=== PATIENT | male | born 1945 | race Hispanic/Latino ===

== ENCOUNTER 2018-01-04 14:38 | Outpatient (CLI) | payer MEDICARE, MEDICAID ==
--- NOTE | 2018-01-04 15:54 | RAD ---
TWO VIEWS OF THE CHEST: 01/04/18 COMPARISON: 05/06/13 HISTORY: Unspecified abdominal pain. FINDINGS: The heart and mediastinal contours are stable. No pneumothorax, pleural fluid, focal consolidation, o r alveolar edema. Clips in right upper quadrant suggests prior cholecystectomy. IMPRESSION: No acute findings. POS: [facility]
--- NOTE | 2018-01-04 16:37 | ULT ---
ULTRASOUND ABDOMEN: 01/04/18 HISTORY: Epigastric pain. COMPARISON: None. FINDINGS: The visualized portion of the aorta is unremarkable. The pancreas is not well seen. Mild increased hepatic echotexture. Portal vein is patent. Prior cholecystectomy. Liver measures 14.6 cm. Common bile duct is normal. The right kidney measures 9.8 x 4.5 x 4.9 cm without mass or hydronephrosis. No calcifications. The left kidney measures 11.2 x 5.8 x 5.9 cm with a 1.2 cm interpolar cyst. Spleen is unremarkable. IMPRESSION: 1. Prior cholecystectomy. 2. No findings to explain the patient's pain. POS: [facility]
== END 2018-01-04 14:39 | disposition home or self-care (01) ==
LOC: ULT 14:38
PROVIDERS: ATTEND Family Medicine
DX: R10.9 Unspecified abdominal pain (principal); Z90.49 Acquired absence of other specified parts of digestive tract
CPT/HCPCS: 71046; 76700

== ENCOUNTER 2018-02-02 07:28 | Outpatient (CLI) | payer MEDICARE, MEDICAID ==
[2018-02-02] MEDS ORDERED: ISOVUE-370 76%-LOCM 1 ML ONE (15:14)
== END 2018-02-02 07:29 | disposition home or self-care (01) ==
LOC: BICCT 07:28
PROVIDERS: ATTEND Internal Medicine
DX: K63.89 Other specified diseases of intestine (principal)
CPT/HCPCS: 74177

== ENCOUNTER 2018-02-09 11:15 | Inpatient (IN) | payer MEDICARE, MEDICAID ==
[2018-02-20] MEDS ORDERED: Midazolam HCl 2 mg/2 ml Vial ONE (07:31)
[2018-02-20] MEDS ORDERED: Fentanyl 100 MCG/2 ML VIAL ONE ×2 (07:31→08:28)
[2018-02-20] MEDS ORDERED: Dexamethasone 4 mg/ml Vial ONE (07:34)
[2018-02-20] MEDS ORDERED: cefOXitin 2 GM in Sodium Chloride 0.9% 100 ML IVPB SCH (07:45)
[2018-02-20] MEDS ORDERED: Ketorolac Tromethamine 30 MG/ML VIAL ONE (07:55)
[2018-02-20] MEDS ORDERED: Lidocaine 1% w/Epinephrine 1:200K 30 ML VIAL ONE (08:21)
[2018-02-20] MEDS ORDERED: Ondansetron HCl/PF 4 MG/2 ML Vial ONE ×2 (08:28→14:23)
[2018-02-20] MEDS ORDERED: cefOXitin 2 GM VIAL ONE (10:35)
[2018-02-20] MEDS ORDERED: Meperidine HCl/PF 25 MG/ML VIAL SLOW IVP PRN (11:00)
[2018-02-20] MEDS ORDERED: Ondansetron HCl/PF 4 MG/2 ML Vial IVP PRN ×2 (11:00→15:01)
[2018-02-20] MEDS ORDERED: Promethazine HCl 25 MG/ML VIAL SLOW IVP PRN (11:00)
[2018-02-20] MEDS ORDERED: Bupivacaine HCl 0.5%/Epinephrine 1:200,000/PF 30 ml Vial ONE (13:47)
[2018-02-20] MEDS ORDERED: PHENYLEPHRINE-NS 100 MCG/ML 10 ML SYRINGE ONE (14:23)
[2018-02-20] MEDS ORDERED: ePHEDrine/0.9% NaCl/PF SYRINGE 50 mg/10 ml ONE (14:23)
[2018-02-20] MEDS ORDERED: Lidocaine 1% PF 5 ML VIAL ONE (14:23)
[2018-02-20] MEDS ORDERED: Glycopyrrolate 0.2 MG/ML 5 ML SYRINGE ONE (14:23)
[2018-02-20] MEDS ORDERED: PROPOFOL 200 MG/20 ML VIAL ONE (14:23)
[2018-02-20] MEDS ORDERED: hydrALAZINE 20 MG/ML VIAL SLOW IVP PRN (15:01)
[2018-02-20] MEDS ORDERED: Promethazine HCl 25 MG/ML VIAL IM PRN (15:01)
[2018-02-20] MEDS ORDERED: Morphine 4 MG/ML VIAL SLOW IVP PRN ×2 (15:01)
[2018-02-20 15:12] VITALS: BMI 29.4
[2018-02-20] MEDS: D5 1/2 NS w/20 mEq KCL 1,000 ML IV SCH ×2 (15:28→23:40)
[2018-02-20] MEDS: Ketorolac Tromethamine 30 MG/ML VIAL IVP SCH ×2 (15:30→20:55)
[2018-02-20] MEDS: Acetaminophen 1,000 MG in Premix Bag 1 BAG IVPB SCH ×2 (15:30→20:54)
[2018-02-20] MEDS: Famotidine 20 MG TAB PO SCH (20:52)
[2018-02-20] MEDS: Tamsulosin HCl 0.4 MG CAP PO SCH (20:52)
[2018-02-20] MEDS: Enoxaparin Sodium 40 MG/0.4 ML SYRINGE SC SCH (20:53)
[2018-02-20] MEDS: ALPRAZolam 0.5 MG TAB PO SCH (20:53)
[2018-02-20] MEDS: Famotidine/PF 20 mg/2ml Vial SLOW IVP SCH (20:54)
[2018-02-21] MEDS: Acetaminophen 1,000 MG in Premix Bag 1 BAG IVPB SCH ×2 (04:42→10:31)
[2018-02-21] MEDS: Ketorolac Tromethamine 30 MG/ML VIAL IVP SCH ×4 (04:42→20:49)
[2018-02-21 05:54] LABS: #Lymphocytes 1.5 thou/uL (1.20-3.40); #Neutrophils 13.3 thou/uL (1.40-6.50); %Eosinophils 0.1 % (0.0-10.0); %Lymphocytes 9.2 % (21.0-51.0); %Monocytes 6.2 % (0.0-10.0); %Neutrophils 84.5 % (42.0-75.0); Hemoglobin 14.5 g/dL (14.0-18.0); Mean Corpuscular HGB CONC 32.8 g/dL (32.0-36.0); Mean Corpuscular Hemoglobin 29.1 pg (27.0-31.0); Mean Platelet Volume 8.4 fL (7.4-10.4); Platelet Count 207 thou/uL (130-400); RBC Distribution Width 12.2 % (11.5-14.5); Red Blood Cell (RBC) Count 4.98 mill/uL (4.70-6.10); White Blood Cell (WBC) Count 15.8 thou/uL (4.8-10.8)
[2018-02-21 06:09] LABS: Anion Gap 12 mmol/L (10-20); BUN (Urea Nitrogen) 10 mg/dL (8.4-25.7); Calc. Creatinine Clearance 86 mL/min (70-130); Calcium 8.6 mg/dL (7.8-10.44); Carbon Dioxide 23 mmol/L (23-31); Chloride 104 mmol/L (98-107); Estimated GFR-MDRD 85; Glucose 138 mg/dL (83-110); Potassium 4.2 mmol/L (3.5-5.1); Sodium 135 mmol/L (136-145)
[2018-02-21] MEDS: Famotidine 20 MG TAB PO SCH ×2 (08:33→20:49)
[2018-02-21] MEDS: D5 1/2 NS w/20 mEq KCL 1,000 ML IV SCH ×3 (08:33→20:47)
[2018-02-21] MEDS: ALPRAZolam 0.5 MG TAB PO SCH ×2 (08:33→20:50)
[2018-02-21] MEDS: Famotidine/PF 20 mg/2ml Vial SLOW IVP SCH ×2 (08:37→20:57)
[2018-02-21] MEDS ORDERED: HYDROcodone/Acetaminophen 7.5/325 mg Tablet PO PRN ×2 (09:20)
--- NOTE | 2018-02-21 14:48 | PRG ---
DATE OF SERVICE: 02/21/2018 SUBJECTIVE: Mr. Hilario is postoperative day number 1 from a laparoscopic sigmoid colectomy. He has no complaints today. He notes essentially no discomfort. He is tolerating his clear liquids uneven tfully. His Good catheter has been removed and he is urinating. He is ambulating as requested. OBJECTIVE: VITAL SIGNS: He is afebrile, pulse 61, blood pressure 103/60. LUNGS: Clear to auscultation. ABDOMEN: Soft. Incision is healing nicely. He has audible bowel sounds. LABORATORY STUDIES: Reveal that his white blood cell count is 15.8, hemoglobin is 14.5. Chemistry p diana reveals essentially normal electrolytes. ASSESSMENT AND PLAN: In summary, he is doing very well one day out from his laparoscopic colon resec tion. Pathology is of course still pending. We will continue the clear liquids today and we will st art full liquids in the morning. If he has evidence of appropriate bowel function, then he is probab ly going to be appropriate for discharge home tomorrow.
[2018-02-21] MEDS: Tamsulosin HCl 0.4 MG CAP PO SCH (20:49)
[2018-02-21] MEDS: Enoxaparin Sodium 40 MG/0.4 ML SYRINGE SC SCH (20:50)
[2018-02-21 23:56] VITALS: TEMP 97.8
[2018-02-22] MEDS: Ketorolac Tromethamine 30 MG/ML VIAL IVP SCH ×2 (03:27→13:25)
[2018-02-22] MEDS: D5 1/2 NS w/20 mEq KCL 1,000 ML IV SCH (03:28)
[2018-02-22] MEDS: ALPRAZolam 0.5 MG TAB PO SCH (08:33)
[2018-02-22] MEDS: Famotidine 20 MG TAB PO SCH ×2 (08:33→08:34)
[2018-02-22 12:11] VITALS: BP 122/67
--- NOTE | 2018-02-23 09:05 | OP ---
DATE OF PROCEDURE: 02/20/2018 PREOPERATIVE DIAGNOSIS: Sigmoid colon cancer. POSTOPERATIVE DIAGNOSIS: Sigmoid colon cancer. OPERATION PERFORMED: Laparoscopic sigmoid colectomy. SURGEON: Dr. Kana Taylor. ANESTHESIA: General endotracheal. INDICATIONS: Patient is a 72-year-old male. He recently underwent colonoscopy revealing a colon cancer about 25 cm from the anal verge. This was tattooed by his paper core machine operator. He prese nts at this time for laparoscopic sigmoid colectomy. He has undergone a preoperative mechanical and antibiotic bowel prep as an outpatient. DESCRIPTION OF OPERATION: Informed consent was obtained. Patient was taken to the operating room ere general endotracheal anesthesia was obtained with the patient in supine position. Tap blocks wer e placed preoperatively by Anesthesia. Good catheter was placed, abdomen was prepped with ChloraPre p and draped in sterile fashion. Patient was placed into dorsal lithotomy position using the Yellofi n stirrups. Local anesthetic was infiltrated with 0.25% Marcaine with epinephrine and a 5-mm incision was created supraumbilical. Veress needle was passed into this incision into the peritoneal cavity and pneumope ritoneum established using carbon dioxide up to a pressure of 15 mmHg. A 5-mm trocar port was passed this same incision. Laparoscopic camera was passed this port. Under direct vision, a 12-mm right l ower abdominal port was placed. The area of the malignancy was able to be identified by tattoos and accordingly, I selected an extraction site in the left lower quadrant. An oblique 7-cm incision was created and muscle splitting technique was used to gain access into the abdominal cavity. The Rufus wound retractor tool was placed followed by the GelPort. Left hand was passed into the abdominal cavity and the operation was continued. The area of the malignancy was easily palpable. I was able to elevate this up out of the pelvis. Se veral centimeters distal to the malignancy just below the level of the sacral promontory was selected the distal transection site. Began peritoneal dissection on the right lateral aspect of the mesentery at approximately the locatio n of the inferior mesenteric vessels. I dissected through the mesentery to the left side was able to clearly identify the left ureter. This was swept inferiorly and dissection was carried to the loose areolar tissue into the extra mesorectal plane. When I had dissected down to the desired level in t he upper rectum, I transected through the mesenteric tissue to skeletonize the upper rectum. This wa s then divided with a single fire of the blue-load [place] stapler. The mesentery was then dissected proximally to the level of the KRIS. I then turned my attention to the left colon. I completely mobilized the sigmoid colon and left colo n from lateral abdominal wall by incising the white line of Toldt up to the splenic flexure. The spl enic flexure was mobilized completely in a lateral to medial fashion. Once there was complete laxity of the splenic flexure and left colon, I returned my attention to the pelvis. I identified a segmen t of the descending colon that would easily reach down to the rectal stump. This was marked with the LigaSure. The bowel was then brought out through the Rufus wound retractor and the operation was c ontinued in an extracorporeal fashion. I turned my attention first to the inferior mesenteric artery, which was visible through the port. T his was divided between clamps and 2-0 silk ties using a suture ligature. I then used the LigaSure t o dissect through the mesentery to the selected site of proximal colon division. At this point, sterile towels were placed around the wound retractor and segregated instrumentation w as used. A colotomy was created and the colon was sized and found to easily tolerate a 31-mm EEA sta pler. The anvil was passed through the colotomy several centimeters proximally brought out antimesen teric. The colotomy was then excluded in continuity with the segment to be resected with a final fir ing of the [place] stapler. The colon was then passed off the field as were the segregated instrumen ts. There had been no bowel contents spillage. Gloves were changed. The post of the anvil was jeffrey nsed with Betadine and a pursestring suture was placed around the base of the anvil and the colon was dropped down into the abdominal cavity. From below, EEA sizers were passed up to the rectal staple line under direct vision and palpation. T he stapler was then passed up to the rectal staple line and the spike was advanced just anterior to t he staple line. This was secured to the anvil in the descending colon and these 2 segments of bowel were anastomosed by firing the stapler. Staple was removed and the donuts were inspected and found t o be intact. The distal donut was submitted as an additional specimen. The anastomosis then inspect ed under water with insufflation to ensure it was airtight. All irrigant was aspirated. The entire operative site was inspected for hemostasis, which was intact . The fascia at the 12-mm port site was closed with 0 Vicryl suture using a GraNee needle. All port s and instruments removed under direct vision. The Rufus wound retractor was removed. All laparosc opic instrumentation was removed from the table. The abdomen was cleansed. The closing tray was then utilized. Gowns and gloves were changed and all new instrumentation was ut ilized. Sterile towels were placed around the operative site. The posterior fascia at the left lowe r quadrant incision was closed with #1 PDS. The wound was then irrigated. The anterior fascia was a lso closed with #1 PDS. I then utilized the laparoscopic ribbon sweatband operator to irrigate the wound as well as the other laparoscopic incisions with 2 liters of irrigant. After the area had been dried, the left lower quadrant wound was closed in layers with 3-0 and 4-0 Monocryl and the other two incisions were also closed with 4-0 Monocryl. Dermabond was placed externally. There were no complications. Blood loss was negligible. Patient tolerated the procedure well and was taken to recovery room in stable condition.
== END 2018-02-22 13:15 | disposition home or self-care (01) | DRG 331 ==
LOC: SURG A 02-20 06:55 → SURG B 02-20 14:42
PROVIDERS: ADMIT Specialist; ATTEND Specialist
PROC: 0DBN4ZZ Excision of Sigmoid Colon, Percutaneous Endoscopic Approach (ICD-10-PCS; principal; 2018-02-20)
DX: C18.7 Malignant neoplasm of sigmoid colon (principal)
CPT/HCPCS: 36415; 36416; 80048; 85025; 88305; 88309; 88331; J0131; J0670; J0694; J1100; J1650; J1885; J2001; J2250; J2270; J2405; J2704; J3010; J7050

== ENCOUNTER 2018-02-09 11:49 | Outpatient (CLI) | payer MEDICARE, MEDICAID ==
[2018-02-09 13:07] LABS: #Basophils 0.1 thou/uL (0.0-0.2); #Eosinphils 0.2 thou/uL (0.0-0.7); #Lymphocytes 2.4 thou/uL (1.20-3.40); #Monocytes 0.6 thou/uL (0.11-0.59); #Neutrophils 3.3 thou/uL (1.40-6.50); %Basophils 1.2 % (0.0-1.0); %Eosinophils 2.6 % (0.0-10.0); %Lymphocytes 37.1 % (21.0-51.0); %Monocytes 8.8 % (0.0-10.0); %Neutrophils 50.2 % (42.0-75.0); Hemoglobin 15.2 g/dL (14.0-18.0); Mean Corpuscular HGB CONC 33.4 g/dL (32.0-36.0); Mean Corpuscular Hemoglobin 30.3 pg (27.0-31.0); Mean Corpuscular Volume 90.6 fl (80.0-94.0); Mean Platelet Volume 8.7 fL (7.4-10.4); Platelet Count 207 thou/uL (130-400); RBC Distribution Width 12.2 % (11.5-14.5); Red Blood Cell (RBC) Count 5.01 mill/uL (4.70-6.10); White Blood Cell (WBC) Count 6.6 thou/uL (4.8-10.8)
[2018-02-09 13:18] LABS: Hemoglobin A1c 5.7 % (4.0-6.0)
[2018-02-09 13:25] LABS: Anion Gap 11 mmol/L (10-20); BUN (Urea Nitrogen) 12 mg/dL (8.4-25.7); Calc. Creatinine Clearance 0 mL/min (70-130); Calcium 9.3 mg/dL (7.8-10.44); Carbon Dioxide 28 mmol/L (23-31); Chloride 106 mmol/L (98-107); Estimated GFR-MDRD 78; Glucose 88 mg/dL (83-110); Potassium 4.5 mmol/L (3.5-5.1); Sodium 140 mmol/L (136-145)
--- NOTE | 2018-02-09 16:48 | EKG ---
Test Reason : Blood Pressure : / mmHG Vent. Rate : 053 BPM Atrial Rate : 053 BPM P-R Int : 128 ms QRS Dur : 104 ms QT Int : 424 ms P-R-T Axes : 050 027 038 degrees QTc Int : 397 ms Sinus bradycardia Otherwise normal ECG Confirmed by DR. Nam GUTHRIE ([id number]) on 02/09/2018 4:48:27 PM Referred By: STEMI Confirmed By:DR. Nam GUTHRIE
== END 2018-02-09 11:50 | disposition home or self-care (01) ==
LOC: LABBT 11:49
PROVIDERS: ATTEND Specialist
DX: Z01.818 Encounter for other preprocedural examination (principal); C18.7 Malignant neoplasm of sigmoid colon; R00.1 Bradycardia, unspecified; Z88.0 Allergy status to penicillin
CPT/HCPCS: 80048; 83036; 85025; 93005; 93010

== ENCOUNTER 2018-03-14 20:58 | Emergency (ER) | payer MEDICARE, MEDICAID ==
[2018-03-14 21:41] LABS: Bilirubin Negative (Negative); Blood, Urine Negative (Negative); Clarity CLEAR (Clear); Glucose, Urine (Dipstick) Negative (Negative); Leukocyte Negative (Negative); Nitrite Negative (Negative); Protein, Urine (Dipstick) Negative (Neg-Trace); Specific Gravity, Urine 1.008 (1.002-1.036); pH, Urine 6.5 (5.0-9.0)
[2018-03-14 22:33] LABS: Anion Gap 9 mmol/L (10-20); BUN (Urea Nitrogen) 8 mg/dL (8.4-25.7); Calc. Creatinine Clearance 0 mL/min (70-130); Calcium 8.6 mg/dL (7.8-10.44); Carbon Dioxide 29 mmol/L (23-31); Chloride 101 mmol/L (98-107); Estimated GFR-MDRD Greater than 90; Glucose 110 mg/dL (83-110); Potassium 3.8 mmol/L (3.5-5.1); Sodium 135 mmol/L (136-145)
== END 2018-03-14 22:57 | disposition home or self-care (01) ==
LOC: ERS 20:58
DX: R33.9 Retention of urine, unspecified (principal); F41.9 Anxiety disorder, unspecified; N40.0 Benign prostatic hyperplasia without lower urinary tract symptoms; J45.909 Unspecified asthma, uncomplicated; Z79.899 Other long term (current) drug therapy; Z87.891 Personal history of nicotine dependence
CPT/HCPCS: 36415; 51702; 80048; 81003; 87086

== ENCOUNTER 2018-03-16 04:49 | Emergency (ER) | payer MEDICARE, MEDICAID ==
[2018-03-16 05:20] LABS: Bilirubin Negative (Negative); Blood, Urine Large (Negative); Clarity TURBID (Clear); Glucose, Urine (Dipstick) Negative (Negative); Leukocyte Small (Negative); Nitrite Negative (Negative); Protein, Urine (Dipstick) 30 mg/dL (Neg-Trace); Specific Gravity, Urine 1.017 (1.002-1.036)
[2018-03-16 05:21] LABS: Bacteria/HPF None Seen HPF (None Seen); Pathc Cast-AUWi Flag 1.45 (0-2.49); RBC/HPF GREATER THAN 50-TNTC HPF (0-3); Squamous Epithelial 0-3 HPF (0-3)
[2018-03-16 05:28] LABS: Hyaline Casts/LPF 0-3 HYALINE CAST LPF (0-3 Hyaline)
[2018-03-16 05:29] LABS: Crystals/HPF 3+ AMORPH PHOS HPF (Negative)
== END 2018-03-16 05:46 | disposition home or self-care (01) ==
LOC: ERS 04:49
DX: T83.84XA Pain due to genitourinary prosthetic devices, implants and grafts, initial encounter (principal); J45.909 Unspecified asthma, uncomplicated; N40.0 Benign prostatic hyperplasia without lower urinary tract symptoms; F41.9 Anxiety disorder, unspecified; Z79.899 Other long term (current) drug therapy; Z87.891 Personal history of nicotine dependence
CPT/HCPCS: 81003; 81015; 87086; 99283

== ENCOUNTER 2018-03-19 11:48 | Emergency (ER) | payer MEDICARE, MEDICAID ==
[2018-03-19 12:50] LABS: #Basophils 0.1 thou/uL (0.0-0.2); #Eosinphils 0.1 thou/uL (0.0-0.7); #Lymphocytes 2.1 thou/uL (1.20-3.40); #Monocytes 1.1 thou/uL (0.11-0.59); #Neutrophils 10.3 thou/uL (1.40-6.50); %Basophils 0.4 % (0.0-1.0); %Eosinophils 0.9 % (0.0-10.0); %Lymphocytes 15.2 % (21.0-51.0); %Monocytes 7.8 % (0.0-10.0); %Neutrophils 75.7 % (42.0-75.0); Hemoglobin 14.9 g/dL (14.0-18.0); Mean Corpuscular HGB CONC 33.6 g/dL (32.0-36.0); Mean Corpuscular Hemoglobin 30.1 pg (27.0-31.0); Mean Corpuscular Volume 89.6 fl (80.0-94.0); Mean Platelet Volume 7.9 fL (7.4-10.4); Platelet Count 306 thou/uL (130-400); Red Blood Cell (RBC) Count 4.96 mill/uL (4.70-6.10); White Blood Cell (WBC) Count 13.6 thou/uL (4.8-10.8)
[2018-03-19 13:13] LABS: ALT (SGPT) 13 U/L (8-55); AST (SGOT) 16 U/L (5-34); Alkaline Phosphatase 143 U/L (40-150); Anion Gap 12 mmol/L (10-20); BUN (Urea Nitrogen) 13 mg/dL (8.4-25.7); Bilirubin, Total 1.3 mg/dL (0.2-1.2); Calc. Creatinine Clearance 0 mL/min (70-130); Calcium 9.4 mg/dL (7.8-10.44); Carbon Dioxide 26 mmol/L (23-31); Chloride 100 mmol/L (98-107); Estimated GFR-MDRD 69; Globulin 4.4 g/dL (2.4-3.5); Glucose 102 mg/dL (83-110); Potassium 4.2 mmol/L (3.5-5.1); Protein, Total 8.4 g/dL (5.8-8.1); Sodium 134 mmol/L (136-145)
== END 2018-03-19 13:15 | disposition left against medical advice (07) ==
LOC: ERS 11:48
DX: Z53.21 Procedure and treatment not carried out due to patient leaving prior to being seen by health care provider (principal)
CPT/HCPCS: 36415; 80053; 85025

== ENCOUNTER 2018-03-20 10:55 | Inpatient (IN) | payer MEDICARE, MEDICAID ==
[2018-03-20 11:30] LABS: Hemoglobin 13.7 g/dL (14.0-18.0); Mean Corpuscular HGB CONC 33.4 g/dL (32.0-36.0); Mean Corpuscular Volume 89.9 fl (80.0-94.0); Mean Platelet Volume 7.9 fL (7.4-10.4); Platelet Count 262 thou/uL (130-400); RBC Distribution Width 11.8 % (11.5-14.5); Red Blood Cell (RBC) Count 4.57 mill/uL (4.70-6.10); White Blood Cell (WBC) Count 13.6 thou/uL (4.8-10.8)
[2018-03-20] MEDS ORDERED: cefTRIAXone\\ROCEPHIN 1 GM VIAL ONE (11:32)
--- NOTE | 2018-03-20 11:51 | CT ---
BRAIN CT WITHOUT IV CONTRAST: History: 72-year-old male with history of fever, urinary tract catheter issues. Comparison: 07-29-06 FINDINGS: Age related changes. No focal mass or midline shift. No intra or extraaxial hemorrhage. Sinuses and m astoids are clear of acute process. IMPRESSION: No mass or bleed or other acute intracranial process. Stable from prior study. POS: [facility]
[2018-03-20 11:53] LABS: Band 18 % (5-11); Lymphocytes 5 % (21-51); MDiff Complete? YES; Monocytes 3 % (0-10); Neutrophil 73 % (42-75); PLT Morphology Comment Appears Adequate; Reactive Lymphocytes 1 % (0-10); Vacuoles SLIGHT
[2018-03-20 11:59] LABS: ALT (SGPT) 12 U/L (8-55); AST (SGOT) 16 U/L (5-34); Albumin 3.6 g/dL (3.4-4.8); Alkaline Phosphatase 137 U/L (40-150); Anion Gap 15 mmol/L (10-20); BUN (Urea Nitrogen) 18 mg/dL (8.4-25.7); Bilirubin, Total 2.7 mg/dL (0.2-1.2); Calc. Creatinine Clearance 0 mL/min (70-130); Calcium 9.1 mg/dL (7.8-10.44); Carbon Dioxide 23 mmol/L (23-31); Chloride 99 mmol/L (98-107); Estimated GFR-MDRD 51; Glucose 106 mg/dL (83-110); Potassium 4.2 mmol/L (3.5-5.1); Protein, Total 7.6 g/dL (5.8-8.1); Sodium 133 mmol/L (136-145)
[2018-03-20 12:37] LABS: Bilirubin Small (Negative); Blood, Urine Large (Negative); Clarity TURBID (Clear); Glucose, Urine (Dipstick) Negative (Negative); Leukocyte Large (Negative); Nitrite Negative (Negative); Protein, Urine (Dipstick) 100 mg/dL (Neg-Trace); Specific Gravity, Urine 1.023 (1.002-1.036); pH, Urine 5.5 (5.0-9.0)
--- NOTE | 2018-03-20 12:41 | RAD ---
CHEST ONE VIEW: HISTORY: Fever. COMPARISON: Chest radiograph from 11/25/2016. FINDINGS: The nodular density seen on the prior examination is not well seen. Increased mediastinal fat. Ther e is some atelectasis in the lung bases. No pneumothorax. No focal air space consolidation. IMPRESSION: No acute intrathoracic abnormality. POS: [facility]
[2018-03-20 12:42] LABS: Hyaline Casts/LPF 4-6 HYALINE CAST LPF (0-3 Hyaline); Pathc Cast-AUWi Flag 1.01 (0-2.49); Squamous Epithelial 0-3 HPF (0-3)
[2018-03-20 12:45] LABS: Yeast-AUWi Flag 71.3 (0-25.0)
[2018-03-20 12:53] LABS: Bacteria/HPF 3+ HPF (None Seen)
[2018-03-20] MEDS ORDERED: Sodium Chloride 0.9% 1,000 ML IV SCH (14:52)
[2018-03-20] MEDS ORDERED: Ondansetron ODT 4 MG TAB PO PRN (14:58)
[2018-03-20 15:26] VITALS: BMI 25.8
[2018-03-20 15:34] LABS: Lactic Acid 1.6 mmol/L (0.5-2.2)
[2018-03-20] MEDS ORDERED: Vancomycin HCl 500 MG in Sodium Chloride 0.9% 100 ML IVPB SCH (16:00)
[2018-03-20] MEDS: Sodium Chloride 0.9% 1,000 ML IV SCH (17:03)
[2018-03-20] MEDS: Acetaminophen 325 MG TAB PO PRN (20:28)
[2018-03-20] MEDS ORDERED: Vancomycin HCl 1 GM in Premix Bag 1 BAG IVPB SCH (21:00)
--- NOTE | 2018-03-20 21:26 | HP ---
CHIEF COMPLAINT: Fever. HISTORY OF PRESENT ILLNESS: This patient is a 72-year-old male who underwent a sigmoid colectomy on 02/22/2018 for a neoplastic mass, which was ultimately a lymph node negative. Patient subsequently f elt final pathology revealed moderately differentiated colonic adenocarcinoma. Patient does not requ jeovanny any further treatment. He reports that he has been doing extremely well with respect to the post op abdomen. However, the patient subsequently developed some urinary retention after his discharge. He has some history of BPH contributing as well. Patient had to come to the emergency department, h ave a Good catheter placed. At that time, he had no evidence of urinary tract infection. The patie nt then had a second visit with the emergency department because he was having some pain in the penis with the catheter. The patient was treated and released from the emergency department. He then cam e back to the ER yesterday, but left without being seen and return today. Today apparently the marcellus nt had gone to his primary care physician's office and had the Good catheter removed. Subsequent to that, he started experiencing substantial fevers with temperature over 104. The patient presented b ack to the emergency department. There, he was noted to have a temperature of 100.9 with pulse of 11 5 and BP of 82/47, room air sat was 92%. Patient appeared to have some evidence of urinary tract inf ection and was felt to have sepsis. On my interview with patient, he states he actually feels quite well. He states he has very little discomfort remaining in the pelvis and penis area, but that is ge tting better. He has voided 3 times since the Good catheter has been removed in the ER since he has been up on the floor. He denies any problems at present and states he understands the situation wel l. The ER physician reported the patient's family members indicated the patient was slurring his wor ds; however, that was not appreciated by that physician. The family members are not present now. PAST MEDICAL HISTORY: Notable for the adenocarcinoma of the colon removed last month. He also has a history of BPH, asthma, and apparently some anxiety. PAST SURGICAL HISTORY: Includes cholecystectomy and the sigmoid colectomy. FAMILY HISTORY: Patient indicates no problems. SOCIAL HISTORY: Patient is a former smoker, quit some years ago. Denies drugs or alcohol. REVIEW OF SYSTEMS: A 10-point review of systems is negative other than those things mentioned in the history of present illness. ALLERGIES: Include PENICILLIN. CURRENT MEDICATIONS: Tramadol 50 mg 1-2 p.o. q.6 hours p.r.n., Flomax 0.4 mg at bedtime, Proventil H FA 2 puffs q.6 hours p.r.n., and Xanax 0.5 mg one p.o. b.i.d. PHYSICAL EXAMINATION: VITAL SIGNS: Currently, blood pressure is still 70s-80s. Most recent vital signs, BP was measured a t 100/58, pulse 88, respirations 18, O2 sat 97% on 2 liters. GENERAL APPEARANCE: Patient is fully awake and alert, pleasant, cooperative, very interactive, and a ppears quite energetic. He does not appear toxic at all. Does not appears that he feels bad in any way. HEENT: PERRL. No OP lesions. NECK: Supple and symmetric with no lymphadenopathy, JVD, or carotid bruits. CARDIOVASCULAR: Regular rate and rhythm without murmurs, gallops, or rubs. LUNGS: Clear to auscultation bilaterally. ABDOMEN: Flat, soft, nontender, nondistended. There is a healing surgical incisional scar primarily in the left lower abdomen. There are no cellulitic changes. EXTREMITIES: Warm and dry with no edema. NEUROLOGIC: Patient has no focal findings. PSYCHIATRIC: Patient has normal affect. SKIN: There are no rashes or lesions. LABORATORY DATA: White count 13.6, hemoglobin 13.7, he has 18% bands. Sodium 133, potassium 4.2, ch loride 99, CO2 is 23, BUN 18, creatinine 1.37, glucose 106, lactic acid 2.7, calcium 9.1. Total bili arora 2.7. LFTs normal. Albumin 3.6. Urinalysis is turbid and dark yellow, pH of 5.5, specific gra vity 1.023, protein 100, trace ketones, large blood, small bilirubin, negative nitrites, large leukoc yte esterase with 7-10 red cells and greater than 50 to too numerous to count white cells, 3+ bacteri a. Chest x-ray normal and CT of the brain performed to evaluate potential slurring of speech appears to be normal as well. ASSESSMENT AND PLAN: 1. Sepsis secondary to urinary tract infection. Patient is receiving aggressive hydration as well a s broad spectrum antibiotics. Blood and urine cultures are pending. He received vancomycin and Roce phin. I will continue those for now. Follow up on the cultures. Primary source is likely the Good catheter. May have dislodged even something, as it was removed today. We will recheck his lactic a bhavani and continue to push fluids as his blood pressure still remained somewhat low. 2. Urinary retention. Patient had postoperative urinary retention. Has a history of some BPH. He has voided 3 times since his Good catheter has been removed. We will order urine osmolality has not a bit concerned he may have actually not had a normally functioning Good catheter and had an obstru ctive uropathy and we are going to may have postobstructive diuresis given that he has voided so much already. He certainly received a fair amount of fluids as well. His blood pressure remains a bit l ow. 3. Postop sigmoid colectomy secondary to adenoma. Patient appears to be doing very well postoperati vely. 4. History of anxiety. We will continue with patient's usual home medications including the Xanax. DISPOSITION: Patient is a FULL CODE and his daughter is his surrogate decision maker and the emergen cy contact.
--- NOTE | 2018-03-20 22:57 | CON ---
DATE OF SERVICE: 03/20/2018 SERVICE: Pulmonary Medicine. REASON FOR CONSULTATION: IMCU patient. HISTORY OF PRESENT ILLNESS: Patient is a 72-year-old male with past medical history significant for adenocarcinoma of the colon. He underwent a resection. Nodes were negative. This was roughly 2 weeks ago. After that, his postop course was complicated by urinary retention. He had a Good catheter or chronically indwelling Good catheter in place for the last couple of weeks. Yesterday, he underwent a voiding trial and apparently did okay with that. As such, the Good catheter was discontinued. For the last 2-3 days, he has had a lack of energy. He presented to the emergency department and was found to be hypotensive. As such, he was given a couple liters of fluid, initiated on broad-spectrum antibiotics. His white blood cell count and band count were elevated. He currently denies any cough, fevers, chills, nausea, vomiting, shortness of breath, diarrhea, or constipation. He indicates that his bowel movements have been slow, but he had passing gas. PAST MEDICAL HISTORY: 1. Anxiety disorder. 2. BPH. 3. Asthma. 4. Colon cancer, status post recent partial colectomy. 5. Adenocarcinoma of the colon, T2 N0 M0. PAST SURGICAL HISTORY: 1. Cholecystectomy. 2. Partial colectomy. SOCIAL HISTORY: He has a remote history of smoking, but quit over 10 years ago. He denies any alcohol or illicit drug use. FAMILY HISTORY: Noncontributory. ALLERGIES: PENICILLIN based on chart review. MEDICATIONS: List of his inpatient medications were reviewed. No specific updates were made at this time. REVIEW OF SYSTEMS: General, head, ears, eyes, nose, throat, cardiovascular, respiratory, GI, , musculoskeletal, neurologic, and skin is negative except as mentioned in the HPI. PHYSICAL EXAMINATION: VITAL SIGNS: Afebrile, pulse 78, blood pressure 80/51, respirations 18, saturation 100% on room air. GENERAL: Patient is awake, alert, no apparent distress. LUNGS: Decent air entry. There is no dependent crackles, wheezing, or rhonchi present. There is no prolonged expiratory phase. HEART: Normal rate, regular. ABDOMEN: Soft, nontender, nondistended. Bowel sounds are positive. His incision site in the left lower quadrant is clean, dry, and intact. The other ports are also clean. There is no rebound or guarding present. Bowel sounds are hypoactive. : No Good in place. NEUROLOGIC: Grossly nonfocal. LABORATORY DATA: WBC 13.6, hemoglobin 13.7, platelets 262,000. Basic metabolic profile was essentially unremarkable other than a creatinine that is above baseline at 1.37. Liver function studies are essentially unremarkable. His bilirubin is minimally elevated at 2.7. That being said, alkaline phosphatase is unremarkable. Urinalysis is positive for white blood cells, leukocyte esterase. Nitrites are unremarkable, 3+ bacteria is evident. Recent urine culture from the and were both unremarkable. IMAGING: CT of the brain demonstrates no acute intracranial abnormality. Chest x-ray demonstrates no acute cardiopulmonary abnormality. ASSESSMENT: 1. Severe sepsis. 2. Acute kidney injury, mild. 3. Urinary tract infection, suspected. 4. Recent obstructive uropathy. 5. Adenocarcinoma of the colon, status post recent partial colectomy with lymph node exploration. PLAN: We will continue antibiotics. We also add a cortisol level to tomorrow morning's laboratories. We will continue bolusing intermittent doses of fluids as needed in order to maintain pressures. Previously, he responded to 1 liter bolus. Since his p.o. intake is poor, gentle IV hydration will be provided. He will remain in the IMCU until his blood pressures firm up a touch. If they do not and he gets 4 liters of fluid, we will consider placing a central line and initiating pressors. For the time being, the patient just requires close observation, however. 70 minutes have been devoted to this patient in various activities. I personally reviewed all imaging studies and laboratory data noted within this document. For fifty percent of this time, I was interacting with the patient at the bedside or coordinating care with the care team. For the remainder of the time I was immediately available to the patient in the hospital unit. KELLEY
[2018-03-20] MEDS ORDERED: PROVENTIL INHALER 6.7 G (200 INHALATIONS) INH PRN (23:08)
[2018-03-21] MEDS: Sodium Chloride 0.9% 1,000 ML IV SCH (03:27)
[2018-03-21 04:10] LABS: Anion Gap 12 mmol/L (10-20); BUN (Urea Nitrogen) 15 mg/dL (8.4-25.7); Calc. Creatinine Clearance 92 mL/min (70-130); Calcium 8.3 mg/dL (7.8-10.44); Carbon Dioxide 21 mmol/L (23-31); Chloride 109 mmol/L (98-107); Estimated GFR-MDRD Greater than 90; Glucose 111 mg/dL (83-110); Potassium 3.9 mmol/L (3.5-5.1); Sodium 138 mmol/L (136-145)
[2018-03-21] MEDS: ALPRAZolam 0.5 MG TAB PO SCH ×2 (08:36→20:37)
[2018-03-21] MEDS: Enoxaparin Sodium 40 MG/0.4 ML SYRINGE SC SCH (08:36)
--- NOTE | 2018-03-21 09:22 | PDOC.PN ---
- Subjective Encounter Start Date: 03/21/18 Encounter Start Time: 09:20 DOING WELL, BUT REPORTS HE HAS SOME PAIN IN THE PELVIS THAT FEELS LIKE PRESSURE. HAS PRESSURE TYPE DISCOMFORT WITH VOIDING AND SITTING UP. VOIDING WELL OTHERWISE. - Objective Resuscitation Status: Resuscitation Status FULL:Full Resuscitation MAR Reviewed: Yes Vital Signs & Weight: Vital Signs (12 hours) Temp Pulse Resp BP Pulse Ox 03/21/18 07:19 99.0 F 78 18 115/66 99 03/21/18 03:28 98.1 F 66 18 108/58 L 100 03/21/18 00:00 97.8 F 62 18 93/53 L 98 Weight Weight 167 lb 14.4 oz I&O: 03/20/18 03/21/18 03/22/18 06:59 06:59 06:59 Intake Total 1200 Output Total 2150 Balance -950 Result Diagrams: 03/20/18 11:22 03/21/18 03:18 Phys Exam - Physical Examination Constitutional: NAD HEENT: PERRLA Neck: no JVD, supple Respiratory: no wheezing, no rales, no rhonchi, clear to auscultation bilateral Cardiovascular: RRR, no significant murmur Gastrointestinal: soft, non-tender, no distention, positive bowel sounds NO BLADDER DISTENTION PALPATED. TTP IN SUPRAPUBIC AREA. Musculoskeletal: no edema Neurological: non-focal Psychiatric: normal affect Skin: no rash Dx/Plan (1) Sepsis Code(s): A41.9 - SEPSIS, UNSPECIFIED ORGANISM Status: Acute Plan: PRESENTED WITH SEPSIS. IMPROVED NOW. APPARENT URINARY SOURCE. STABLE. TRANSFER TO FLOOR. (2) UTI (urinary tract infection) Status: Acute Plan: VANCOMYCIN AND ROCEPHIN. CULTURES DO NOT REVEAL A SPECIFIC PATHOGEN YET. (3) Pelvic pain in male Code(s): R10.2 - PELVIC AND PERINEAL PAIN Status: Acute Plan: HE IS S/P SIGMOID COLECTOMY FOR T1N0 ADENOCA. ALSO HAD SUBSEQUENT URINARY RETENTION AND REQUIRED A LAKE UNTIL YESTERDAY. WILL ASK UROLOGY TO EVALUATE HIM AGAIN. SUSPECT HIS DISCOMFORT IS RELATED TO THE LAKE THAT WAS DISCONTINUED YESTERDAY, BUT GIVEN THE SEVERITY OF HIS PRESENTATION, NEED TO BE CERTAIN THERE IS NO OTHER PATHOLOGY OF CONCERN. (4) Dysuria Code(s): R30.0 - DYSURIA Status: Acute - Plan * TRANSFER TO THE FLOOR. * AWAIT COMPLETION OF CULTURES.
--- NOTE | 2018-03-21 10:03 | PRG ---
DATE OF SERVICE: 03/21/2018 SERVICE: Pulmonary Medicine. INTERVAL HISTORY: The patient is doing fine from a cardiovascular and respiratory standpoint. He de nies any current fevers, chills, nausea or vomiting. Overnight, his blood pressures firmed up very n icely. He is tolerating p.o. Otherwise, he is requesting to go home today. I told him that is not going to happen because we were waiting some blood cultures and urine cultures to come back prelimina rily before we consider what p.o. antibiotic regimen we can put him on if that is feasible. PHYSICAL EXAMINATION: VITAL SIGNS: Afebrile with a T-max of 99.0. Pulse 78, blood pressure 115/66, respirations 18, satur ation 99% on room air. GENERAL: The patient is awake and alert, no apparent distress. LUNGS: Excellent air entry. There is no prolonged expiratory phase or wheezing present. HEART: Normal rate and regular. ABDOMEN: Soft, nontender, nondistended. Bowel sounds are positive. MUSCULOSKELETAL: No cyanosis or clubbing. There is no pitting in the bilateral lower extremities. NEUROLOGIC: Grossly nonfocal. LABORATORY DATA: Cortisol level falls within the normal limits. Lactate has down trended to 1.6. B asic metabolic profile is completely unremarkable with a creatinine that is now normal at 0.79. Whit e blood cells are positive in the urinalysis. Urine culture and blood cultures are negative to date, however. ASSESSMENT: 1. Severe sepsis. 2. Acute kidney injury, resolved. 3. Urinary tract infection, suspected. 4. Recent obstructive uropathy. 5. Adenocarcinoma of the colon, status post recent partial colectomy with lymph node exploration. DISCUSSION AND PLAN: We will continue our empiric antibiotics while we await culture results. IV fl uids will be interrupted as the patient is tolerating p.o. just fine. He is clearing his end organ d amage. As such, he is a candidate for transition to the medical unit while we follow the cultures. When he arrives on the floor, he will have no further requirements for inpatient Pulmonary or Critica l Care opinion and I will sign off.
[2018-03-21] MEDS: cefTRIAXone\\ROCEPHIN 1 GM in Sodium Chloride 0.9% 100 ML IVPB SCH (12:43)
[2018-03-21] MEDS: Acetaminophen 325 MG TAB PO PRN (12:43)
[2018-03-21] MEDS: Vancomycin HCl 1.5 GM in Sodium Chloride 0.9% 250 ML 300 ML IVPB SCH (12:43)
--- NOTE | 2018-03-21 13:57 | CON ---
DATE OF CONSULTATION: 03/21/2018 INPATIENT CONSULTATION REFERRING: Hospitalist. REASON FOR CONSULT: UTI. HISTORY OF PRESENT ILLNESS: Mr. Sulaiman Cox is a 72-year-old male , non-Kazakh speaking, who presented to the emergency room on 03/14/2018 with urinary retention of approximately 350 mL. Questionable 550 mL upon review of records. The patient previously underwent laparoscopic sigmoid colectomy by Dr. Taylor on 02/20/2018. He had an indwelling Good catheter and presented to my office as a new patient on 03/20/2018. We did provide him with a voiding trial and he was only able to tolerate approximately 150 mL into the bladder which began to urinate around the catheter and he voided with no significant postvoid residual of concern. He was given an elective followup with me regarding reassessment of his voiding parameters. I did inform the patient to increase his Flomax to b.i.d., due to significantly enlarged prostate and recent urinary retention, and was initiated on Avodart on a recent visit due to large prostate volume appreciated on his prior CT. The patient subsequently after the catheter removal developed chills, myalgia, history of fever per family of 104. He presented to the emergency room with temperature 100.9 and blood pressure 82/47. With IV fluids and antibiotic therapy, his symptoms have significantly improved and currently appears comfortable. He has been voiding spontaneously per patient without sensation of incomplete void. He does have some mild dysuria; however, this appears to be improving. Bladder scan at bedside after voiding approximately 400-500 mL in the urinal demonstrates PVR of around 80-100 mL. Patient adamantly refuses indwelling Good catheter replacement. Appears quite anxious. He denied prior history of urinary retention preceding 03/14/2018 retention. PAST MEDICAL HISTORY: TMJ, history of pathologic T1 adenocarcinoma of the sigmoid. PAST SURGICAL HISTORY: Laparoscopic cholecystectomy in 1998 and laparoscopic sigmoid colectomy 02/20/[address] Taylor. CURRENT MEDICATIONS: Include Tylenol, hydrocodone 5/325, albuterol, DuoNeb, Xanax, Rocephin, Lovenox, Zofran, Flomax, and vancomycin. ALLERGIES: PENICILLIN causes swelling. Appears to be tolerating Rocephin without significant issues. PHYSICAL EXAMINATION: VITAL SIGNS: T-max is 100.4 by family. T-max in the hospital was 100.9. He is currently afebrile 98.9, 79, 16, 97, 97/64. HEENT: Grossly unremarkable. HEART: Regular rate. LUNGS: Clear. ABDOMEN: Soft, nontender, nondistended. GENITOURINARY: Demonstrates uncircumcised phallus, meatus that is grossly unremarkable with no significant discharge. Testes are palpated within no evidence of intratesticular mass. Declines digital rectal exam; unable to perform adequately as he is anxious regarding SHAWNA. Bladder scan at the bedside after voiding clear concentrated yellow urine of approximately 400 mL, PVR variable from 80-100 mL. PERTINENT LABORATORY DATA AND IMAGING DATA: White count is 13, hemoglobin 13, platelet 269, 18 bands. Lactic acid at 2.7 on admission, currently is 1.6, creatinine 1.3, has improved to 0.7 with hydration. Urinalysis demonstrates 100 protein, 7-10 RBCs, greater than 50 WBCs, 3+ bacteria. Blood culture is pending. Urine culture preliminary demonstrates mixed skin elton. On UA, does not appear to be a contaminated specimen. Previous urine culture and blood culture has been negative. CT of the abdomen and pelvis dating back 01/2018, no evidence of metastatic disease. Per my review, his prostate volume is approximately 122 grams. IMPRESSION AND PLAN: Mr. Hilario is a 72-year-old male with history of colon cancer, status post recent laparoscopic colon resection recently presented to my office with prior history of urinary retention, h/o PVR variable from 350-550. He had a successful voiding trial in my office yesterday ; however, after the catheter removal developed fever and chills consistent with transient bacteremia. His urine culture and blood culture is negative thus far. He has improved clinically with hydration, broad spectrum antibiotic therapy. He is adamantly refusing replacement of an indwelling Good catheter, it is not necessary to replace Good catheter at this time as his postvoid residual is minimal, not of concern. Nursing staff to perform bladder scan every 6 hours for postvoid residual, if greater than 300 mL, I do recommend patient be catheterized for CIC. will follow along with you on this admission. He has been recently transition to Flomax twice a day, Avodart initiated resume in house MTDD
[2018-03-21] MEDS: HYDROcodone/Acetaminophen 5/325 mg Tablet PO PRN (20:37)
[2018-03-21] MEDS: Tamsulosin HCl 0.4 MG CAP PO SCH (20:37)
[2018-03-21] MEDS ORDERED: Tamsulosin HCl 0.4 MG CAP PO SCH (21:00)
[2018-03-22 05:15] LABS: #Basophils 0.1 thou/uL (0.0-0.2); #Eosinphils 0.1 thou/uL (0.0-0.7); #Lymphocytes 1.6 thou/uL (1.20-3.40); #Monocytes 0.7 thou/uL (0.11-0.59); #Neutrophils 3.4 thou/uL (1.40-6.50); %Basophils 0.9 % (0.0-1.0); %Eosinophils 2.5 % (0.0-10.0); %Lymphocytes 27.2 % (21.0-51.0); %Monocytes 11.3 % (0.0-10.0); %Neutrophils 58.3 % (42.0-75.0); Hemoglobin 12.4 g/dL (14.0-18.0); Mean Corpuscular HGB CONC 33.2 g/dL (32.0-36.0); Mean Corpuscular Hemoglobin 29.5 pg (27.0-31.0); Mean Platelet Volume 7.5 fL (7.4-10.4); Platelet Count 265 thou/uL (130-400); RBC Distribution Width 11.8 % (11.5-14.5); White Blood Cell (WBC) Count 5.9 thou/uL (4.8-10.8)
[2018-03-22 05:29] LABS: Anion Gap 12 mmol/L (10-20); BUN (Urea Nitrogen) 11 mg/dL (8.4-25.7); Calc. Creatinine Clearance 87 mL/min (70-130); Calcium 8.5 mg/dL (7.8-10.44); Carbon Dioxide 25 mmol/L (23-31); Chloride 104 mmol/L (98-107); Estimated GFR-MDRD Greater than 90; Glucose 96 mg/dL (83-110); Potassium 3.6 mmol/L (3.5-5.1); Sodium 137 mmol/L (136-145)
[2018-03-22] MEDS: HYDROcodone/Acetaminophen 5/325 mg Tablet PO PRN (05:38)
[2018-03-22] MEDS: ALPRAZolam 0.5 MG TAB PO SCH (07:42)
[2018-03-22] MEDS: Tamsulosin HCl 0.4 MG CAP PO SCH (07:42)
[2018-03-22] MEDS: Enoxaparin Sodium 40 MG/0.4 ML SYRINGE SC SCH (07:42)
--- NOTE | 2018-03-22 07:49 | PRG ---
DATE OF SERVICE: 03/22/2018 SUBJECTIVE: The patient is resting comfortably, grandson at bedside. The patient states that he is doing well with no pain with urination. Denies sensation of incomplete void. PHYSICAL EXAMINATION: VITAL SIGNS: Stable, afebrile. GENITOURINARY: Urine output 950+. ABDOMEN: Soft, nontender, nondistended. PERTINENT LABORATORY DATA: White count is decreased from 13-5.9, resolution of bandemia, hemoglobin 12, platelet 265 and 0.8 creatinine. Blood culture negative thus far. Urine culture demonstrates mixed skin elton. UA itself does not demonstrate contaminated specimen. IMPRESSION AND PLAN: Mr. Hilario is a 72-year-old male with history of colon cancer, status post laparoscopic colon resection, who presented recently to my office for a voiding trial due to history of retention of PVR of 350-500, underwent successful voiding trial; however, subsequently developed chills, malaise and admitted for fever. Cultures are negative thus far. He is clinically improved with broad-spectrum antibiotics. As he is responding to Rocephin and vancomycin, the patient may be discharged with Omnicef 300 mg one p.o. b.i.d. for a course of 7-10 days. He is allergic to PENICILLIN; however, tolerating cephalosporins without significant issues. 1. Benign prostatic hypertrophy. Continue Flomax 0.4 mg 1 p.o. b.i.d., Avodart as an outpatient. Pleas make sure, the patient has enough medications at home. Has follow up as previously advised in chart. Nursing staff did not monitor his postvoid residual overnight, they are instructed to call me with his postvoid residual this morning. If no significant postvoid residual of concern , patient will be discharged with Omnicef, Flomax 0.4 mg 1 p.o. b.i.d., Avodart 0.5 mg 1 p.o. daily. Addendum: PVR per nursing staff minimal 60, 16 mL. Patient may be discharged MTDD
[2018-03-22] MEDS ORDERED: Dutasteride 0.5 MG CAP PO SCH (09:00)
[2018-03-22 11:17] VITALS: BP 116/70; TEMP 98.4
[2018-03-22] MEDS ORDERED: Vancomycin HCl 1.5 GM in Sodium Chloride 0.9% 250 ML 300 ML IVPB SCH (13:00)
[2018-03-22] MEDS: cefTRIAXone\\ROCEPHIN 1 GM in Sodium Chloride 0.9% 100 ML IVPB SCH (13:22)
[2018-03-22] MEDS: Vancomycin HCl 1.5 GM in Sodium Chloride 0.9% 250 ML 300 ML IVPB SCH (13:23)
--- NOTE | 2018-03-22 15:23 | DIS ---
DATE OF ADMISSION: 03/20/2018 DATE OF DISCHARGE: 03/22/2018 ADMITTING DIAGNOSES: Sepsis. DISCHARGE DIAGNOSIS: Sepsis. SECONDARY DIAGNOSES: 1. Acute urinary tract infection. 2. Urinary retention. 3. History of adenocarcinoma of the colon resection. 4. History of asthma. HISTORY OF PRESENT ILLNESS AND HOSPITAL COURSE: In brief, this is a 72-year-old white male who had a recent history of sigmoid colectomy for adenocarcinoma with a negative lymph node. The patient was admitted because of the fever of 104 and he was noted to have a urinary tract infection with elevated white count. So, Urology was consulted. Dr. George saw the patient and agreed with the plan o f continuing antibiotics at this time. The patient responded very well to the Rocephin, which did br ing down the white count pretty well and the patient was fever free for more than 24 hours. The shant ent was active and has no pain and wanted to go home. He also had a good urine output and his Good catheter was removed with very low post residual volume. The patient was advised to continue on anti biotics third generation and wait on the urine cultures. If it comes back positive for bacteria, jeffrey sharp is resistant to the third generation cephalosporins, then we will call in that antibiotic at that time. The patient is discharged home in stable condition. PHYSICAL EXAMINATION: VITAL SIGNS: Blood pressure is 116/70, heart rate is 71, respiratory rate is 16, saturation 99%. GENERAL: The patient is moderately built and moderately nourished, does not appear to be in acute di stress. CARDIOVASCULAR: S1, S2 normal. No murmurs, rubs or gallops. LUNGS: Bilateral air entry was equal. No wheezing, no crackles. ABDOMEN: Soft, nontender, no guarding, no rebound tenderness. Bowel sounds normal. MUSCULOSKELETAL: No calf tenderness. No pedal edema. No joint tenderness. No joint swelling. DISCHARGE MEDICATIONS: 1. Albuterol sulfate. 2. Alprazolam 0.5 mg p.o. b.i.d. 3. Cefdinir 300 mg p.o. q.12 hours for 7 more days. 4. Dutasteride 0.5 mg mg p.o. daily. 5. Tamsulosin 0.4 mg p.o. b.i.d. 6. Tramadol 1-2 tablets q.6 hours p.r.n. DISCHARGE INSTRUCTIONS: Continue activity as tolerated. Advised to complete the antibiotic course. Follow up with Urology, Dr. George in 1 week and return to the ER if the patient develops any f urther fevers or any worsening abdominal pain. I spent less than 35 minutes with this patient on the day of discharge.
== END 2018-03-22 16:01 | disposition home or self-care (01) | DRG 698 ==
LOC: ERS 10:55 → IMCU/EMU 14:46 → T4-B 03-21 18:50
PROVIDERS: ADMIT Internal Medicine; ATTEND Internal Medicine
DX: T83.511A Infection and inflammatory reaction due to indwelling urethral catheter, initial encounter (principal); A41.9 Sepsis, unspecified organism; R65.20 Severe sepsis without septic shock; N17.9 Acute kidney failure, unspecified; N39.0 Urinary tract infection, site not specified; R33.8 Other retention of urine; J45.909 Unspecified asthma, uncomplicated; F41.9 Anxiety disorder, unspecified; N40.1 Benign prostatic hyperplasia with lower urinary tract symptoms; Y84.6 Urinary catheterization as the cause of abnormal reaction of the patient, or of later complication, without mention of misadventure at the time of the procedure; Z87.891 Personal history of nicotine dependence; Y92.9 Unspecified place or not applicable; Z79.899 Other long term (current) drug therapy; Z88.0 Allergy status to penicillin; Z90.49 Acquired absence of other specified parts of digestive tract; Z85.038 Personal history of other malignant neoplasm of large intestine
CPT/HCPCS: 36415; 70450; 71045; 80048; 80053; 81003; 81015; 82533; 83605; 85025; 87040; 87086; 93005; 96361; 96365; J0696; J1650; J3370; J7050

== ENCOUNTER 2018-05-24 08:45 | Outpatient (CLI) | payer MEDICARE, MEDICAID ==
--- NOTE | 2018-05-24 12:13 | PET ---
PET CT: HISTORY: 73-year-old male with invasive moderately differentiated sigmoid adenocarcinoma. The tumor was remove d on 02/20/18. Exam requested for initial staging. TECHNIQUE: PET scanning with CT attenuation correction was performed from the base of the brain through the prox imal thighs following the intravenous administration of 11.4 mCi [id number] in the right antecubital fos sa. Imaging performed after an uptake interval of 49 minutes. FINDINGS: Correlation is made with CT abdomen/pelvis dated 02/02/18. No linnette hypermetabolism is seen in the neck, chest, axilla, abdomen, pelvis, or inguinal regions. No hypermetabolic pulmonary nodules, liver, adrenal, or skeletal lesions are identified. There is physiologic activity in the GI and tracts, and the visualized portions of the brain. The CT scan used for attenuation correction demonstrate no evidence of pleural effusions or ascites. There are postop changes in the sigmoid colon. The prostate is enlarged. There is a cyst in the cauda te lobe of the liver. IMPRESSION: No evidence of metastatic disease. POS: [facility]
== END 2018-05-24 08:46 | disposition home or self-care (01) ==
LOC: PET 08:45
PROVIDERS: ATTEND Internal Medicine Hematology & Oncology
DX: C18.9 Malignant neoplasm of colon, unspecified (principal); E83.59 Other disorders of calcium metabolism
CPT/HCPCS: 78815; A9552

== ENCOUNTER 2018-08-28 20:36 | Inpatient (IN) | payer MEDICARE, MEDICAID ==
[2018-08-28] MEDS ORDERED: Acetaminophen 500 MG TAB ONE (21:08)
[2018-08-28] MEDS ORDERED: Ondansetron PF 4 MG/2 ML Vial ONE (21:08)
[2018-08-28 21:37] LABS: Lactate 1.93 mmol/L (0.50-2.20)
[2018-08-28 21:41] LABS: #Lymphocytes 0.9 thou/uL (1.20-3.40); #Monocytes 0.8 thou/uL (0.11-0.59); #Neutrophils 16.7 thou/uL (1.40-6.50); %Basophils 0.2 % (0.0-1.0); %Eosinophils 0.1 % (0.0-10.0); %Lymphocytes 4.7 % (21.0-51.0); %Monocytes 4.3 % (0.0-10.0); %Neutrophils 90.8 % (42.0-75.0); Hemoglobin 16.3 g/dL (14.0-18.0); Mean Corpuscular HGB CONC 33.6 g/dL (32.0-36.0); Mean Corpuscular Hemoglobin 29.4 pg (27.0-31.0); Mean Corpuscular Volume 87.7 fL (78.0-98.0); Mean Platelet Volume 8.8 fL (7.4-10.4); Platelet Count 196 thou/uL (130-400); RBC Distribution Width 12.2 % (11.5-14.5); Red Blood Cell (RBC) Count 5.55 mill/uL (4.70-6.10); White Blood Cell (WBC) Count 18.4 thou/uL (4.8-10.8)
--- NOTE | 2018-08-28 21:42 | RAD ---
PORTABLE CHEST: 08/28/18 HISTORY: Fever, chills. COMPARISON: 03/20/18. Heart size is mildly prominent. Mild vascular engorgement. No definite infiltrate although the lung b ases are poorly evaluated on this portable projection. The left lung base is especially degraded due to the cardiomegaly and portable exposure. Left basilar infiltrate or consolidation cannot be complet ruslan excluded. IMPRESSION: Mild cardiomegaly with mild vascular engorgement. Lung bases are poorly evaluated. Consider upright P A and lateral views as indicated. POS: [facility]
[2018-08-28 22:03] LABS: ALT (SGPT) 22 U/L (8-55); AST (SGOT) 27 U/L (5-34); Albumin 4.2 g/dL (3.4-4.8); Alkaline Phosphatase 59 U/L (40-150); Anion Gap 14 mmol/L (10-20); BUN (Urea Nitrogen) 13 mg/dL (8.4-25.7); Bilirubin, Total 1.1 mg/dL (0.2-1.2); Calc. Creatinine Clearance 0 mL/min (70-130); Carbon Dioxide 22 mmol/L (23-31); Chloride 102 mmol/L (98-107); Estimated GFR-MDRD 58; Globulin 3.9 g/dL (2.4-3.5); Glucose 135 mg/dL (83-110); Potassium 3.6 mmol/L (3.5-5.1); Protein, Total 8.1 g/dL (5.8-8.1); Sodium 134 mmol/L (136-145)
[2018-08-28 22:05] LABS: Bilirubin Negative (Negative); Blood, Urine Negative (Negative); Clarity CLEAR (Clear); Glucose, Urine (Dipstick) Negative (Negative); Leukocyte Negative (Negative); Nitrite Negative (Negative); Protein, Urine (Dipstick) Negative (Neg-Trace); Specific Gravity, Urine 1.017 (1.002-1.036); pH, Urine 7.5 (5.0-9.0)
[2018-08-28] MEDS ORDERED: Cefepime 2 GM VIAL ONE (22:49)
[2018-08-29] MEDS ORDERED: PROVENTIL INHALER 6.7 G (200 INHALATIONS) INH PRN (00:50)
[2018-08-29] MEDS ORDERED: Sodium Chloride 0.9% 1,000 ML IV SCH (01:00)
--- NOTE | 2018-08-29 01:57 | HP ---
CHIEF COMPLAINT: Fever. HISTORY OF PRESENT ILLNESS: Patient is a 73-year-old male with a history of BPH, also has a history of adenocarcinoma of the colon, which was resected. No chemo or radiation, who presented to the hosp ital with complaints of fever of 103. Patient's daughter was at the bedside stated that he was doing well; however, today he just was not feeling well, slept all day. When patient's going to [facility] on him, he was noted to be very flushed and when the daughter took his temperature, his temperature was 101 orally. Patient denies any nausea, vomiting, any diarrhea, any abdominal pain. Patient's d gabriela does state that he did have a little headache before coming into the hospital; however, art lally he denies any headache. Patient denies any neck pain or any neck rigidity. Denies any lower ba ck pain or any problems urinating. PAST MEDICAL HISTORY: Patient has a history of benign prostatic hyperplasia. He has a history of ad enocarcinoma of the colon. He uses an inhaler, but has not been diagnosed with asthma according to t he daughter and has a history of anxiety. PAST SURGICAL HISTORY: Has had a cholecystectomy, has also had a sigmoid colectomy. No radiation of chemotherapy was given to this patient. FAMILY HISTORY: No history of heart disease or cancer. SOCIAL HISTORY: Patient was a former smoker. He quit many years ago. Denies any drug use or alcoho l use. REVIEW OF SYSTEMS: All negative except for the ones mentioned above in the HPI. ALLERGIES: He is allergic to PENICILLIN. MEDICATIONS: He takes tramadol 50 mg 1-2 p.o. q.6 hours p.r.n., Flomax 0.4 mg at bedtime, Proventil HFA 2 puffs q.6 hours, and Xanax 0.5 one p.o. b.i.d. PHYSICAL EXAMINATION: VITAL SIGNS: His temperature in the ER was 103.1, blood pressure of 120/60, heart rate of 85, 97% on room air. GENERAL: Patient is awake, alert, oriented, does not appear in any distress. HEENT: PERRL. NECK: No lesions in the mouth noted. CARDIOVASCULAR: S1, S2 present. No murmurs, rubs, or gallops. LUNGS: Clear to auscultation, rhonchi, or wheezes noted. ABDOMEN: Obese. Bowel sounds are present x2. No pain upon palpation. EXTREMITIES: No edema. Pedal pulses are present x2. NEUROLOGIC: No focal deficits noted. SKIN: No rashes or lesions noted. LABORATORY DATA: As of the following: He had a white count of 18.4, hemoglobin of 15.3, hematocrit of 48.7, platelets of 196. He had no bands. He did have some neutrophils 90. Chemistry: Sodium of 134, potassium of 3.6, BUN of 13, creatinine of 1.22, glucose of 135. His C-reactive protein was mi ldly elevated at 2.51. Otherwise, his LFTs were pretty normal. His urine was completely normal. He did have chest x-ray, which did not indicate any focal infiltrates. He recently had PET scan in [facility], which also was negative for any active disease. ASSESSMENT AND PLAN: Patient is a very pleasant 73-year-old male who presents to the hospital with f ever. 1. Sepsis, unknown source. Patient's chest x-ray and urine were negative. Blood cultures are drawn with pending results. Patient has no hardware per family, he has got no ports either. We will star t the patient on some broad spectrum antibiotics. We will check an ESR, CRP is mildly elevated. Swathi mathew has not chemotherapy. He only has been following with his oncologist for his oncologist for kya veillance. No problems urinating either. His differential could be the viral versus bacterial. He was swabbed for flu. The flu was negative for this patient. 2. Leukocytosis most likely this could be secondary to his underlying infection. We will continue t o monitor. 3. History of colon cancer, status post resection, no chemo. Patient for PET scan, does not indicat e any signs of recurrence. 4. Deep venous thrombosis prophylaxis. We will put patient on subcutaneous heparin.
[2018-08-29 02:58] VITALS: BMI 29.1
[2018-08-29] MEDS: Acetaminophen 325 MG TAB PO PRN ×3 (04:10→22:11)
[2018-08-29] MEDS: Dutasteride 0.5 MG CAP PO SCH (08:41)
[2018-08-29] MEDS: Tamsulosin HCl 0.4 MG CAP PO SCH ×2 (08:41→19:52)
[2018-08-29] MEDS: ALPRAZolam 0.5 MG TAB PO SCH ×2 (08:41→19:52)
[2018-08-29] MEDS ORDERED: Vancomycin HCl 1 GM in Premix Bag 1 BAG IVPB SCH (09:00)
[2018-08-29] MEDS ORDERED: Heparin 5,000 UNITS/ML VIAL SC SCH ×2 (09:00→21:00)
[2018-08-29] MEDS ORDERED: Saccharomyces boulardii 250 MG CAP PO SCH (10:00)
--- NOTE | 2018-08-29 11:11 | RAD ---
CHEST 2 VIEWS: HISTORY: Pneumonia. COMPARISON: Radiograph 08/28/2018. FINDINGS: There is a left basilar airspace opacity. Small right effusion. No pneumothorax. No acute osseous abnormality. Right upper quadrant surgical clips. IMPRESSION: Left basilar airspace opacity concerning for infection. POS: [facility]
[2018-08-29 11:55] LABS: Mean Corpuscular HGB CONC 32.7 g/dL (32.0-36.0); Mean Corpuscular Hemoglobin 29.2 pg (27.0-31.0); Mean Corpuscular Volume 89.5 fL (78.0-98.0); Mean Platelet Volume 8.4 fL (7.4-10.4); Platelet Count 157 thou/uL (130-400); RBC Distribution Width 12.3 % (11.5-14.5); Red Blood Cell (RBC) Count 4.78 mill/uL (4.70-6.10); White Blood Cell (WBC) Count 12.4 thou/uL (4.8-10.8)
[2018-08-29 12:05] LABS: Anion Gap 7 mmol/L (10-20); BUN (Urea Nitrogen) 10 mg/dL (8.4-25.7); Calc. Creatinine Clearance 70 mL/min (70-130); Carbon Dioxide 25 mmol/L (23-31); Chloride 107 mmol/L (98-107); Estimated GFR-MDRD 66; Glucose 108 mg/dL (83-110); Potassium 3.6 mmol/L (3.5-5.1); Sodium 135 mmol/L (136-145)
[2018-08-29 12:14] LABS: Band 12 % (5-11); Lymphocytes 6 % (21-51); MDiff Complete? YES; Monocytes 1 % (0-10); Neutrophil 80 % (42-75); RBC Morphology Normal; Reactive Lymphocytes 1 % (0-10)
[2018-08-29] MEDS: Cefepime 1 GM in Sodium Chloride 0.9% 100 ML IVPB SCH ×2 (13:00→22:09)
[2018-08-30 05:04] LABS: #Lymphocytes 2.4 thou/uL (1.20-3.40); #Monocytes 0.5 thou/uL (0.11-0.59); #Neutrophils 3.7 thou/uL (1.40-6.50); %Basophils 0.5 % (0.0-1.0); %Eosinophils 0.4 % (0.0-10.0); %Lymphocytes 36.7 % (21.0-51.0); %Monocytes 6.9 % (0.0-10.0); %Neutrophils 55.5 % (42.0-75.0); Mean Corpuscular HGB CONC 33.6 g/dL (32.0-36.0); Mean Corpuscular Hemoglobin 29.9 pg (27.0-31.0); Mean Platelet Volume 9.3 fL (7.4-10.4); Platelet Count 139 thou/uL (130-400); RBC Distribution Width 12.2 % (11.5-14.5); White Blood Cell (WBC) Count 6.7 thou/uL (4.8-10.8)
[2018-08-30 05:16] LABS: Anion Gap 12 mmol/L (10-20); BUN (Urea Nitrogen) 11 mg/dL (8.4-25.7); Calc. Creatinine Clearance 73 mL/min (70-130); Calcium 8.3 mg/dL (7.8-10.44); Carbon Dioxide 21 mmol/L (23-31); Chloride 108 mmol/L (98-107); Estimated GFR-MDRD 69; Glucose 93 mg/dL (83-110); Magnesium 1.7 mg/dL (1.6-2.6); Potassium 3.5 mmol/L (3.5-5.1); Sodium 137 mmol/L (136-145)
[2018-08-30] MEDS: Saccharomyces boulardii 250 MG CAP PO SCH (08:29)
[2018-08-30] MEDS: Dutasteride 0.5 MG CAP PO SCH (08:30)
[2018-08-30] MEDS: Tamsulosin HCl 0.4 MG CAP PO SCH ×2 (08:30→20:42)
[2018-08-30] MEDS: ALPRAZolam 0.5 MG TAB PO SCH ×2 (08:30→20:42)
[2018-08-30] MEDS ORDERED: Prevnar 13-Val Conj/PF 0.5 ML SYRINGE IM ONE (09:00)
[2018-08-30] MEDS: Cefepime 1 GM in Sodium Chloride 0.9% 100 ML IVPB SCH ×2 (11:26→22:12)
[2018-08-30] MEDS ORDERED: traMADol HCl 50 MG TAB PO PRN (12:03)
--- NOTE | 2018-08-30 12:04 | PDOC.PN ---
- Subjective Encounter Start Date: 08/30/18 Encounter Start Time: 09:00 Patient seen and examined for Sepsis. feels better. Cough +. No Cp/ Palpitations. No new complaints. No overnight events - Objective Resuscitation Status: Resuscitation Status FULL:Full Resuscitation MAR Reviewed: Yes Vital Signs & Weight: Vital Signs (12 hours) Temp Pulse Resp BP Pulse Ox 08/30/18 11:34 99.0 F 08/30/18 08:00 91 L 08/30/18 07:38 98.8 F 82 18 116/68 91 L 08/30/18 04:00 98.3 F 90 16 126/73 93 L 08/30/18 00:00 99.1 F 81 18 110/47 L 95 Weight Weight 180 lb 11.2 oz I&O: 08/29/18 08/30/18 08/31/18 06:59 06:59 06:59 Intake Total 400 Output Total 450 Balance -50 Result Diagrams: 08/30/18 04:08 08/30/18 04:08 Radiology Reviewed by me: Yes (CXR - Pneumonia) Phys Exam - Physical Examination Constitutional: NAD Respiratory: no wheezing, no rhonchi Bibasilar rales Cardiovascular: RRR, no rub Gastrointestinal: soft, non-tender, positive bowel sounds Musculoskeletal: no edema Neurological: moves all 4 limbs Psychiatric: A&O x 3 Dx/Plan - Plan DVT proph w/SCDs 1. Sepsis due to Pneumonia ?Pneumococcal 2. CKD 2 3. BPH 4. Anxiety 5. Hyponatremia 6. Mild Metabolic acidosis (Lactate normal) 7. Reactive airway disease ?Asthma PLAN: Cont Cefepime/Levaquin AM labs Walking program Cont current meds as below Review of Systems - Review of Systems Respiratory: Cough, Dry. negative: Shortness of Breath, Hemoptysis, SOB with Excertion, Pleuritic Pain, Sputum, Wheezing Cardiovascular: negative: chest pain, palpitations, orthopnea, paroxysmal nocturnal dyspnea, edema, light headedness, other - Medications/Allergies Allergies/Adverse Reactions: Allergies Allergy/AdvReac Type Severity Reaction Status Date / Time Penicillins Allergy Verified 02/09/18 11:59 Medications: Current Medications Acetaminophen (Tylenol) 650 mg PO Q4H PRN PRN Reason: Headache/Fever/Mild Pain (1-3) Last Admin: 08/29/18 22:11 Dose: 650 mg Albuterol Sulfate (Proventil Hfa) 2 puff INH Q6H PRN PRN Reason: SOB &/or Wheezing Albuterol/Ipratropium (Duoneb) 3 ml NEB [id number] PRN PRN Reason: SOB &/or Wheezing Alprazolam (Xanax) 0.5 mg PO BID [facility] Last Admin: 08/30/18 08:30 Dose: 0.5 mg Dutasteride (Avodart) 0.5 mg PO DAILY [facility] Last Admin: 08/30/18 08:30 Dose: 0.5 mg Cefepime HCl 1 gm/ Sodium (Chloride) 100 mls @ 200 mls/hr IVPB 1100,2300 [facility] Last Admin: 08/30/18 11:26 Dose: 100 mls Levofloxacin 500 mg/ Device 100 mls @ 100 mls/hr IVPB Q24HR [facility] Last Admin: 08/29/18 13:05 Dose: 100 mls Saccharomyces Boulardii (Florastor) 250 mg PO DAILY [facility] Last Admin: 08/30/18 08:29 Dose: 250 mg Sodium Chloride (Flush - Normal Saline) 10 ml IVF Q12HR [facility] Last Admin: 08/30/18 08:32 Dose: 10 ml Sodium Chloride (Flush - Normal Saline) 10 ml IVF PRN PRN PRN Reason: Saline Flush Last Admin: 08/29/18 01:46 Dose: 10 ml Tamsulosin HCl (Flomax) 0.4 mg PO BID [facility] Last Admin: 08/30/18 08:30 Dose: 0.4 mg
[2018-08-31 05:51] LABS: #Basophils 0.1 thou/uL (0.0-0.2); #Eosinphils 0.2 thou/uL (0.0-0.7); #Lymphocytes 2.5 thou/uL (1.20-3.40); #Monocytes 0.6 thou/uL (0.11-0.59); #Neutrophils 1.8 thou/uL (1.40-6.50); %Basophils 1.1 % (0.0-1.0); %Lymphocytes 47.9 % (21.0-51.0); %Monocytes 11.6 % (0.0-10.0); %Neutrophils 35.4 % (42.0-75.0); Hemoglobin 14.6 g/dL (14.0-18.0); Mean Corpuscular HGB CONC 33.7 g/dL (32.0-36.0); Mean Corpuscular Hemoglobin 29.7 pg (27.0-31.0); Mean Corpuscular Volume 88.3 fL (78.0-98.0); Mean Platelet Volume 9.5 fL (7.4-10.4); Platelet Count 164 thou/uL (130-400); RBC Distribution Width 12.1 % (11.5-14.5); White Blood Cell (WBC) Count 5.2 thou/uL (4.8-10.8)
[2018-08-31 06:19] LABS: Calcium 8.5 mg/dL (7.8-10.44); Chloride 106 mmol/L (98-107); Potassium 3.5 mmol/L (3.5-5.1); Sodium 138 mmol/L (136-145)
[2018-08-31 07:05] LABS: BUN (Urea Nitrogen) 13 mg/dL (8.4-25.7); Calc. Creatinine Clearance 77 mL/min (70-130); Carbon Dioxide 22 mmol/L (23-31); Estimated GFR-MDRD 74; Glucose 117 mg/dL (83-110)
[2018-08-31 07:10] LABS: Anion Gap 14 mmol/L (10-20)
[2018-08-31 08:11] VITALS: TEMP 98.4
[2018-08-31] MEDS ORDERED: Polyethylene Glycol 3350 17 GM Packet PO SCH (09:00)
[2018-08-31] MEDS ORDERED: Senokot S 8.6-50 MG TAB PO SCH (09:00)
[2018-08-31] MEDS: Saccharomyces boulardii 250 MG CAP PO SCH (09:03)
[2018-08-31] MEDS: Dutasteride 0.5 MG CAP PO SCH (09:06)
[2018-08-31] MEDS: Tamsulosin HCl 0.4 MG CAP PO SCH (09:06)
[2018-08-31] MEDS: ALPRAZolam 0.5 MG TAB PO SCH (09:06)
[2018-08-31] MEDS ORDERED: Potassium Chloride 20 MEQ TAB PO SCH (11:00)
[2018-08-31] MEDS: Cefepime 1 GM in Sodium Chloride 0.9% 100 ML IVPB SCH (11:31)
[2018-08-31 11:48] VITALS: BP 122/87
--- NOTE | 2018-09-01 10:07 | DIS ---
DATE OF DISCHARGE: 08/31/2018 DISCHARGE DISPOSITION: Home. FOLLOWUP: 1. Follow up with primary care physician, Dr. Diaz in 1 week. 2. Repeat chest x-ray after 4 weeks is recommended. Primary care physician advised to follow. ALLERGIES: PENICILLIN. DISCHARGE MEDICATIONS: 1. Levaquin 500 mg daily for 1 week. 2. All other home medications were left unchanged. The patient was seen and examined on the day of discharge, denies any new complaints. SIGNIFICANT LABORATORY DATA: 1. WBC on admission 18.4, at discharge 5.2. 2. CRP 2.51. BRIEF HOSPITAL COURSE: The patient is a 73-year-old male with asthma who presented to the [facility] with fever up to 103 degrees at home. Please refer to the history and physical for further d etails. The patient was admitted to the hospital with a diagnosis of sepsis of unclear etiology. His WBC cou nt on admission was 18.4 with elevated CRP. His initial chest x-ray was negative. A repeat chest x- ray next morning showed left basilar infiltrate. He showed good improvement with cefepime and Levaqu in. He appears stable for discharge. He will continue Levaquin for another week. Repeat chest x-ray after 4 weeks is recommended. FINAL DIAGNOSES: 1. Sepsis secondary to pneumonia, suspected pneumococcal. 2. Chronic kidney disease stage 2. 3. Hyponatremia. 4. Benign prostatic hypertrophy. 5. Anxiety. 6. Mild metabolic acidosis. 7. Reactive airway disease suspected mild intermittent asthma. Plan of care was discussed with the patient in detail. He stated understanding.
--- NOTE | 2018-09-08 17:51 | EKG ---
Test Reason : Blood Pressure : / mmHG Vent. Rate : 116 BPM Atrial Rate : 116 BPM P-R Int : 116 ms QRS Dur : 098 ms QT Int : 300 ms P-R-T Axes : 019 -09 -14 degrees QTc Int : 417 ms Sinus tachycardia Abnormal ECG Confirmed by LEANNE MONTANA ([id number]), city editor GINGER HOLLINGSWORTH ([id number]) on 09/08/2018 5:51:23 PM Referred By: Confirmed By:LEANNE MONTANA
== END 2018-08-31 13:58 | disposition home or self-care (01) | DRG 871 ==
LOC: ERS 20:36 → 2NO 08-29 01:24 → T4-A 08-29 18:12
PROVIDERS: ADMIT Internal Medicine; ATTEND Internal Medicine
DX: A41.9 Sepsis, unspecified organism (principal); J13 Pneumonia due to Streptococcus pneumoniae; E87.1 Hypo-osmolality and hyponatremia; E87.2 Acidosis; N18.2 Chronic kidney disease, stage 2 (mild); N40.0 Benign prostatic hyperplasia without lower urinary tract symptoms; F41.9 Anxiety disorder, unspecified; J45.20 Mild intermittent asthma, uncomplicated; Z85.038 Personal history of other malignant neoplasm of large intestine
CPT/HCPCS: 36415; 71045; 71046; 80048; 80053; 81003; 83605; 83735; 85007; 85025; 85027; 85652; 86140; 87040; 87804; 93005; 96361; 96365; 96375; J0692; J1644; J1956; J2405; J3370; J7050

== ENCOUNTER 2019-03-11 15:40 | Outpatient (CLI) | payer MEDICARE, MEDICAID ==
--- NOTE | 2019-03-11 20:59 | RAD ---
EXAM: Two views chest PROVIDED CLINICAL HISTORY: Chest pain. History of asthma as well as history of colon cancer. COMPARISON: 08/29/2018 FINDINGS: Cardiac silhouette and pulmonary vasculature are within normal limits. There is stable minimal patch y density at the left lung base which may be related to scarring given the stability since prior exam. The lungs are otherwise clear. Surgical clips again overlie the right upper quadrant. Mild dege nerative changes are present in the spine. Chest is stable compared to prior study. IMPRESSION: 1. Stable minimal patchy density left lung base. These findings may be related to chronic findings an d scarring given stability compared to prior exam. Lungs are otherwise clear.
== END 2019-03-11 15:41 | disposition home or self-care (01) ==
LOC: BICRAD 15:40
PROVIDERS: ATTEND Family Medicine
DX: C18.9 Malignant neoplasm of colon, unspecified (principal); J45.909 Unspecified asthma, uncomplicated; R07.1 Chest pain on breathing; J98.4 Other disorders of lung
CPT/HCPCS: 71046

== ENCOUNTER 2019-03-19 03:11 | Emergency (ER) | payer MEDICARE, MEDICAID ==
[2019-03-19 03:55] LABS: Hemoglobin 15.1 g/dL (14.0-18.0); Mean Corpuscular HGB CONC 34.3 g/dL (32.0-36.0); Mean Corpuscular Volume 90.4 fL (78.0-98.0); Mean Platelet Volume 9.1 fL (7.4-10.4); Platelet Count 189 thou/uL (130-400); RBC Distribution Width 12.2 % (11.5-14.5); Red Blood Cell (RBC) Count 4.87 mill/uL (4.70-6.10); White Blood Cell (WBC) Count 8.9 thou/uL (4.8-10.8)
[2019-03-19] MEDS ORDERED: Morphine 4 MG/ML VIAL ONE ×2 (04:05→04:45)
[2019-03-19] MEDS ORDERED: Ondansetron PF 4 MG/2 ML Vial ONE (04:05)
[2019-03-19 04:08] LABS: Alkaline Phosphatase 58 U/L (40-150); Anion Gap 14 mmol/L (10-20); Bilirubin, Total 0.7 mg/dL (0.2-1.2); Calcium 9.3 mg/dL (7.8-10.44); Carbon Dioxide 24 mmol/L (23-31); Chloride 105 mmol/L (98-107); Globulin 3.4 g/dL (2.4-3.5); Glucose 113 mg/dL (83-110); Potassium 3.9 mmol/L (3.5-5.1); Protein, Total 7.4 g/dL (5.8-8.1); Sodium 139 mmol/L (136-145)
[2019-03-19 04:09] LABS: Calc. Creatinine Clearance 0 mL/min (70-130); Estimated GFR-MDRD 61
[2019-03-19 04:10] LABS: BUN (Urea Nitrogen) 12 mg/dL (8.4-25.7)
[2019-03-19 04:11] LABS: AST (SGOT) 19 U/L (5-34)
[2019-03-19 04:12] LABS: ALT (SGPT) 14 U/L (8-55); CK (CPK) 153 U/L (30-200)
[2019-03-19 04:19] LABS: Lipase 24 U/L (8-78)
[2019-03-19 04:25] LABS: Band 1 % (5-11); Eosinophils 3 % (0-10); Lymphocytes 45 % (21-51); MDiff Complete? YES; Monocytes 7 % (0-10); Neutrophil 36 % (42-75); Reactive Lymphocytes 8 % (0-10)
[2019-03-19 07:07] LABS: Troponin I Less than 0.010 ng/mL (< 0.028)
--- NOTE | 2019-03-19 07:48 | CT ---
CT Aortic Dissection Protocol History: Chest pain. Comparison: Chest radiograph same day Findings: CT angiogram of the chest and abdomen performed after the intravenous administration of con trast. 3-D rendering provided. Impression: Findings and impression are concordant with the preliminary report.
--- NOTE | 2019-03-19 07:51 | RAD ---
Exam: Chest one view HISTORY:Chest pain Comparison: 08/28/2018 FINDINGS: Cardiac silhouette: Normal Pulmonary vessels: Normal Costophrenic angles: Minimal blunting of both costophrenic angles which may be due to atelectasis or small effusion. LUNGS: Patchy interstitial opacities likely representing chronic change. No consolidation Pneumothorax: None Osseous abnormalities: None IMPRESSION: 1. Blunting of costophrenic angles likely atelectasis or small bilateral effusions. 2. Chronic lung parenchymal changes.
--- NOTE | 2019-03-23 10:26 | EKG ---
Test Reason : Blood Pressure : / mmHG Vent. Rate : 058 BPM Atrial Rate : 058 BPM P-R Int : 138 ms QRS Dur : 086 ms QT Int : 414 ms P-R-T Axes : -04 021 037 degrees QTc Int : 406 ms Sinus bradycardia Otherwise normal ECG Confirmed by LEANNE MONTANA ([id number]), supervising film or videotape editor RADHA MATT ([id number]) on 03/23/2019 10:26:05 AM Referred By: Confirmed By:LEANNE MONTANA
== END 2019-03-19 07:32 | disposition home or self-care (01) ==
LOC: ERS 03:11
DX: R10.13 Epigastric pain (principal); E78.5 Hyperlipidemia, unspecified; J45.909 Unspecified asthma, uncomplicated; F41.9 Anxiety disorder, unspecified; Z79.899 Other long term (current) drug therapy; Z87.891 Personal history of nicotine dependence
CPT/HCPCS: 36415; 71045; 71275; 80053; 82550; 83690; 84484; 85025; 93005; 96361; 96374; 96375; 96376; J2270; J2405

== ENCOUNTER 2019-07-28 06:01 | Emergency (ER) | payer MEDICARE, MEDICAID ==
[2019-07-28 07:31] LABS: #Basophils 0.1 thou/uL (0.0-0.2); #Eosinphils 0.1 thou/uL (0.0-0.7); #Lymphocytes 2.5 thou/uL (1.20-3.40); #Monocytes 0.7 thou/uL (0.11-0.59); #Neutrophils 4.7 thou/uL (1.40-6.50); %Basophils 1.1 % (0.0-1.0); %Eosinophils 1.5 % (0.0-10.0); %Lymphocytes 31.1 % (21.0-51.0); %Monocytes 8.7 % (0.0-10.0); %Neutrophils 57.6 % (42.0-75.0); Hemoglobin 15.5 g/dL (14.0-18.0); Mean Corpuscular HGB CONC 33.5 g/dL (32.0-36.0); Mean Corpuscular Hemoglobin 30.7 pg (27.0-31.0); Mean Corpuscular Volume 91.6 fL (78.0-98.0); Mean Platelet Volume 8.6 fL (7.4-10.4); Platelet Count 198 thou/uL (130-400); Red Blood Cell (RBC) Count 5.06 mill/uL (4.70-6.10); White Blood Cell (WBC) Count 8.1 thou/uL (4.8-10.8)
[2019-07-28 07:37] LABS: INR-International Normal Ratio 1.1; PTT 27.1 SEC (22.9-36.1)
--- NOTE | 2019-07-28 07:49 | CT ---
PRELIMINARY REPORT/[facility]/EMERGENCY AFTER HOURS PROCEDURE: PROCEDURE INFORMATION: Exam: CT Head Without Contrast Exam date and time: 07/28/2019 6:19 AM Clinical history: 74 years old, male; Headache; Patient HX: Family reports that PT has been complaining of a pain inthe back of his head along with n/v and frequent belching since around midnight tonight TECHNIQUE: Imaging protocol: Computed tomography of the head without contrast. COMPARISON: No relevant prior studies available. FINDINGS: Brain: No acute intracranial hemorrhage or mass effect. There is very mild decreased attenuation in the periventricular white matter, likely from microvascul ar disease.No definite acute infarct by CT. MRI could be more sensitive/specific for detection, as clini james directed. Ventricles: Ventricle size is normal for age. Bones/joints: No definite acute skull fracture. Sinuses: Included paranasal sinuses are essentially clear. Mastoid air cells: No significant acute finding. Vasculature: Vascular calcifications in the internal carotid arteries. IMPRESSION: 1. No acute intracranial hemorrhage or mass effect. 2. No definite acute infarct by CT, see above. 3. Other findings discussed above. Thank you for allowing us to participate in the care of your patient. Dictated and Authenticated by: Demar Obrien MD 07/28/2019 6:35 AM Central Time ([place] & [place]) FINAL REPORT EMERGENCY AFTER HOURS STUDY CT BRAIN NONCONTRAST: DATE: 07/28/2019. HISTORY: 74-year-old male with headache, nausea, and vomiting. FINDINGS: There is no evidence of acute intra-axial or extra-axial hemorrhage. There is no midline shift or any other mass effect. There is no extra-axial fluid collection. There is no evidence of obstructive hydrocephalus. Calvarium is intact. Agree with preliminary report by [facility]. IMPRESSION: No acute intracranial findings. Transcribed Date/Time: 07/28/2019 8:12 AM
[2019-07-28 07:52] LABS: ALT (SGPT) 20 U/L (8-55); AST (SGOT) 26 U/L (5-34); Albumin 4.2 g/dL (3.4-4.8); Alkaline Phosphatase 64 U/L (40-110); Anion Gap 12 mmol/L (10-20); BUN (Urea Nitrogen) 13 mg/dL (8.4-25.7); Bilirubin, Total 1.1 mg/dL (0.2-1.2); Calc. Creatinine Clearance 0 mL/min (70-130); Calcium 9.2 mg/dL (7.8-10.44); Carbon Dioxide 27 mmol/L (23-31); Chloride 104 mmol/L (98-107); Estimated GFR-MDRD 76; Globulin 3.5 g/dL (2.4-3.5); Glucose 106 mg/dL (83-110); Potassium 3.9 mmol/L (3.5-5.1); Protein, Total 7.7 g/dL (5.8-8.1); Sodium 139 mmol/L (136-145)
[2019-07-28] MEDS ORDERED: Ondansetron PF 4 MG/2 ML Vial ONE (07:59)
[2019-07-28] MEDS ORDERED: Pantoprazole 40 MG VIAL ONE (07:59)
[2019-07-28 08:03] LABS: CK (CPK) 354 U/L (30-200); Lipase 22 U/L (8-78)
--- NOTE | 2019-07-28 08:32 | CT ---
CT ABDOMEN WITH CONTRAST CT PELVIS WITH CONTRAST: DATE: 07/28/2019 HISTORY: 74-year-old male with nausea and vomiting. COMPARISON: 02/02/2018. TECHNIQUE: IV injection of iodinated contrast media: administered. Oral contrast media:Not administered FINDINGS: No pneumoperitoneum or ascites. No small bowel dilation. No colonic diverticulitis. Interval resectio n of lesion at sigmoid colon, now with suture line and surgical clip in that location. Cholecystectomy clips. Small cyst in caudate lobe of liver. Small left renal cyst. No hydronephrosis or abdominal aortic aneurysm. Enlarged prostate gland. Unremarkable pancreas, adrenals, and spleen. No retroperitoneal or iliac chain lymphadenopathy. IMPRESSION: 1) no acute findings. 2) evidence for benign prostatic hyperplasia (BPH. Disclaimer: This does not necessarily exclude pros denis cancer). 3) status post cholecystectomy. 4) status post sigmoid colon cancer resection.
== END 2019-07-28 08:57 | disposition home or self-care (01) ==
LOC: ERS 06:01
DX: R10.9 Unspecified abdominal pain (principal); R11.2 Nausea with vomiting, unspecified; R51 Headache; E78.5 Hyperlipidemia, unspecified; J45.909 Unspecified asthma, uncomplicated; F41.9 Anxiety disorder, unspecified; Z87.891 Personal history of nicotine dependence; Z79.899 Other long term (current) drug therapy; Z79.51 Long term (current) use of inhaled steroids
CPT/HCPCS: 36415; 70450; 74177; 80053; 82550; 83605; 83690; 83880; 84484; 85025; 85610; 85730; 93005; 96361; 96374; 96375; C9113; J2405

== ENCOUNTER 2020-01-06 15:00 | Outpatient (CLI) | payer MEDICARE, MEDICAID ==
--- NOTE | 2020-01-06 15:42 | RAD ---
PORTABLE CHEST: Date: 01-06-2020 Provided Clinical History: Cough FINDINGS: Comparison 03-30-2019. The cardiac silhouette appears enlarged, which may be at least partially on the basis of portable laura hnique. There is obscuration of the left hemidiaphragm, which may reflect left basilar, pleural and/o r parenchymal opacity. There is no evidence for pneumothorax. IMPRESSION: Obscuration of the left hemidiaphragm, which may reflect left basilar pleural and/or parenchymal opac ity. Correlate with concerns for pneumonia. Follow is recommended. POS: GUNJAN
== END 2020-01-06 15:01 | disposition home or self-care (01) ==
LOC: BICRAD 15:00
PROVIDERS: ATTEND Family Medicine
DX: R05 Cough (principal); F41.9 Anxiety disorder, unspecified; J98.6 Disorders of diaphragm; Z85.038 Personal history of other malignant neoplasm of large intestine
CPT/HCPCS: 71045

== ENCOUNTER 2020-02-04 08:48 | Outpatient (CLI) | payer MEDICARE, MEDICAID ==
--- NOTE | 2020-02-04 10:06 | RAD ---
EXAM: Chest PA and lateral: HISTORY: COPD. Cough. COMPARISON: 03/11/2019 FINDINGS: Heart: Normal cardiac silhouette Aorta: Unremarkable Pulmonary vessels: Normal Costophrenic angles: Costophrenic angles are clear. Lungs: No consolidation or masses. Chronic lung parenchymal changes. Pneumothorax: No pneumothorax Osseous structures: No osseous abnormalities IMPRESSION: No acute cardiopulmonary process.
--- NOTE | 2020-02-04 10:09 | RAD ---
TWO VIEWS LUMBAR SPINE: HISTORY: Long-standing pain. No reported injury. FINDINGS: Five lumbar-type vertebrae. Vertebral body height is maintained. No fracture. Mild loss of disc space height and osteophyte formation the distal thoracic spine and thoracolumbar junction. Three mm of retrolisthesis of L1 upon L2, 2 mm retrolisthesis of L2 upon L3, 3 mm retrolisthesis of L 3 upon L4, 1 mm retrolisthesis of L4 upon L5, 6.6 mm of anterolisthesis of L5 upon S1. No obvious spondylolysis. Atherosclerosis of the aorta is noted. IMPRESSION: Multilevel spondylolisthesis. No evidence of associated spondylolysis. Transcribed Date/Time: 02/04/2020 12:35 PM
--- NOTE | 2020-02-04 10:10 | RAD ---
Exam: 3 views thoracic spine HISTORY: Pain. No reported injury FINDINGS: AP, swimmer's and lateral view of the thoracic spine demonstrate 12 thoracic type vertebra. Vertebral body height is maintained. There is no fracture. Disc space heights are essentially preserved. No malalignment. Minimal osteophyte formation the mid thoracic spine. IMPRESSION: No significant degenerative change or fracture.
== END 2020-02-04 08:49 | disposition home or self-care (01) ==
LOC: BICRAD 08:48
PROVIDERS: ATTEND Family Medicine
DX: J45.909 Unspecified asthma, uncomplicated (principal); J44.0 Chronic obstructive pulmonary disease with (acute) lower respiratory infection; R07.89 Other chest pain; Z85.038 Personal history of other malignant neoplasm of large intestine; M54.5 Low back pain; M54.6 Pain in thoracic spine; M43.16 Spondylolisthesis, lumbar region; M43.17 Spondylolisthesis, lumbosacral region
CPT/HCPCS: 71045; 71046; 72072; 72100

== ENCOUNTER 2020-03-06 18:53 | Inpatient (IN) | payer MEDICARE, MEDICAID, OTHER ==
[~2020-03-06 18:53] MED LIST: Iopamidol-370 76% 500 ML 1 ML ONE
[2020-03-06] MEDS ORDERED: Acetaminophen 500 MG TAB ONE (19:49)
[2020-03-06 20:00] LABS: #Lymphocytes 1.1 thou/uL (1.20-3.40); #Monocytes 0.2 thou/uL (0.11-0.59); #Neutrophils 4.4 thou/uL (1.40-6.50); %Basophils 0.4 % (0.0-1.0); %Eosinophils 0.1 % (0.0-10.0); %Lymphocytes 19.7 % (21.0-51.0); %Neutrophils 75.9 % (42.0-75.0); Hemoglobin 14.8 g/dL (14.0-18.0); Mean Corpuscular HGB CONC 33.7 g/dL (32.0-36.0); Mean Corpuscular Volume 91.8 fL (78.0-98.0); Mean Platelet Volume 9.1 fL (7.4-10.4); Platelet Count 135 thou/uL (130-400); Red Blood Cell (RBC) Count 4.79 mill/uL (4.70-6.10); White Blood Cell (WBC) Count 5.7 thou/uL (4.8-10.8)
--- NOTE | 2020-03-06 20:10 | RAD ---
Chest AP view INDICATION: History of positive Covid; cough congestion chest pain COMPARISON: March 05, 2020 FINDINGS: Lungs: There is worsening peripheral airspace opacity seen within the right and left midlung as well as within the left lung base Cardiac silhouette: The cardiomediastinal silhouette appears within normal limits. Pulmonary vasculature: Normal Pleural spaces: No pleural effusion or pneumothorax is demonstrated. Upper abdomen: No abnormality seen. Osseous structures: No acute osseous abnormality. Additional findings: None. IMPRESSION: Worsening multifocal pneumonia
[2020-03-06 20:20] LABS: ALT (SGPT) 23 U/L (8-55); AST (SGOT) 32 U/L (5-34); Albumin 3.7 g/dL (3.4-4.8); Alkaline Phosphatase 58 U/L (40-110); Anion Gap 11 mmol/L (10-20); BUN (Urea Nitrogen) 12 mg/dL (8.4-25.7); Bilirubin, Total 0.8 mg/dL (0.2-1.2); Calc. Creatinine Clearance 0 mL/min (70-130); Calcium 8.4 mg/dL (7.8-10.44); Carbon Dioxide 26 mmol/L (23-31); Chloride 100 mmol/L (98-107); Estimated GFR-MDRD 73; Globulin 3.8 g/dL (2.4-3.5); Glucose 113 mg/dL (83-110); Potassium 3.8 mmol/L (3.5-5.1); Protein, Total 7.5 g/dL (5.8-8.1); Sodium 133 mmol/L (136-145)
--- NOTE | 2020-03-06 21:32 | CT ---
CTA Angio Chest W WO Con 03/06/2020 7:39 PM Indication: History of COVID infection with cough, congestion and chest pain Technique: Multiple CTA images were obtained of the thorax with IV contrast. 3-D rendering: MIP jam nstructed images were created and reviewed. Comparison: CT of the thorax dated November 25, 2016 Findings: Pulmonary arteries: No central or segmental pulmonary embolus is evident. Heart and Aorta: There is mild cardiomegaly. There are coronary artery and thoracic aortic calcifica tions. Mediastinum:There are mildly prominent lymph nodes seen scattered within the mediastinum. One of the more prominent is seen within the right paratracheal region measuring 11 mm. Lungs:There are patchy peripheral groundglass subpleural opacity seen throughout both lungs with area s of more prominent peripheral airspace consolidation in the right middle lobe and lingula. This is a pattern reported with COVID infections. Pleural space: Clear. Upper Abdomen: There is a small 1.5 cm cyst within the caudate lobe. The gallbladder surgically abse nt. Osseous Structures: No acute osseous abnormality. Soft tissues:No abnormality. Other findings:None. Impression: 1. No central or segmental pulmonary embolus. 2. Patchy areas of peripheral, subpleural, groundglass opacity seen throughout both lungs with more p rominent areas of peripheral airspace consolidation in the right middle lobe and lingula. This is pattern reported with COVID infections. 3. Mildly prominent mediastinal lymphadenopathy. 4. Hepatic cyst
[2020-03-06] MEDS ORDERED: Albuterol Sulfate 2.5 mg/3 ml Neb NEB PRN (22:27)
[2020-03-06] MEDS: cefTRIAXone\\ROCEPHIN 1 GM in Sodium Chloride 0.9% 100 ML IVPB SCH (23:52)
[2020-03-06] MEDS: Azithromycin 500 MG in Sodium Chloride 0.9% 250 ML 250 ML IVPB SCH (23:53)
[2020-03-07 00:20] VITALS: BMI 27.6
--- NOTE | 2020-03-07 02:45 | HP ---
CHIEF COMPLAINT: Fever, cough, and shortness of breath. HISTORY OF PRESENT ILLNESS: Mr. Hilario is a 74-year-old male with past medical history of hyperlipidemia, asthma, prostate problems?, presented to the emergency room second day in a row with worsening shortness of breath, cough, and fever. The patient was recently diagnosed with COVID-19 infection. Workup in the emergency room including CT of the chest. The patient was found to have worsening multifocal pneumonia. Oxygen saturation on room air today is 89%. The patient started on oxygen, the patient is being admitted to the hospital for further management. Denies abdominal pain, diarrhea, or vomiting. PAST MEDICAL HISTORY: 1. Hyperlipidemia. 2. Prostate problems. 3. Asthma. PAST SURGICAL HISTORY: 1. Cholecystectomy. 2. Colonoscopy with tumor removal? PAST PSYCHIATRIC HISTORY: Anxiety. SOCIAL HISTORY: Denies alcohol drinking. Former smoker. FAMILY HISTORY: Reviewed and noncontributory. CURRENT MEDICATIONS: Please see home medication reconciliation form for updated medications. ALLERGIES: PENICILLIN. REVIEW OF SYSTEMS: Review of 14 systems negative except what is mentioned in history of present illness. PHYSICAL EXAMINATION: GENERAL: The patient is awake, alert, in respiratory distress. VITAL SIGNS: Blood pressure 135/67, pulse is 93, respiratory rate is 21, temperature 101.7, and oxygen saturation is 89% on room air. HEAD AND NECK: Normocephalic and atraumatic. Neck is supple. CHEST: Coarse bilateral breath sounds. HEART: S1 and S2. Regular, tachycardic. ABDOMEN: Soft and nontender. Bowel sounds present. NEUROLOGIC: Awake, alert, and oriented x3. No focal deficits. PSYCHIATRIC: Unable to assess. EXTREMITIES: No clubbing. No cyanosis. GENITOURINARY: No suprapubic tenderness. No flank tenderness. LABORATORY DATA: WBC count is 5.7 with lymphopenia. CTA of the chest, patchy areas of peripheral, subpleural ground-glass opacity seen throughout both lungs with more prominent areas of peripheral airspace consolidation in the right middle lobe and lingula. This pattern reported with COVID infection. ASSESSMENT: 1. Acute hypoxic respiratory failure. 2. Pneumonia, viral, COVID-19, superimposed bacterial infection cannot be entirely ruled out. 3. Hyperlipidemia. 4. Asthma. PLAN: 1. Admit. 2. Oxygen to keep saturation more than 94%. 3. Symptomatic management. 4. Start the patient on IV antibiotics, cannot entirely rule out superimposed bacterial infection. 5. Bronchodilators as needed. 6. Reconcile home medications. 7. DVT prophylaxis, low-molecular weight heparin. 8. Expected length of stay, 2 midnights or more. Job ID: [id number]
[2020-03-07] MEDS: Acetaminophen 325 MG TAB PO PRN ×4 (03:47→21:25)
[2020-03-07] MEDS: Enoxaparin Sodium 40 MG/0.4 ML SYRINGE SC SCH (08:58)
[2020-03-07] MEDS ORDERED: Famotidine 20 MG TAB PO SCH (09:00)
--- NOTE | 2020-03-07 14:18 | PDOC.HOSPP ---
- Subjective Encounter Date: 03/07/20 Encounter Time: 11:20 Subjective: pt resting, no complaints. pending COVID. - Objective Vital Signs & Weight: Vital Signs (12 hours) Temp Pulse Resp BP Pulse Ox 03/07/20 09:00 102.2 F H 84 20 127/72 97 03/07/20 05:19 99.6 F 03/07/20 03:45 103.2 F H 93 32 H 121/65 95 03/07/20 02:32 95 Weight Weight 171 lb I&O: 03/06/20 03/07/20 03/08/20 06:59 06:59 06:59 Intake Total 800 Output Total 150 Balance 650 Result Diagrams: 03/06/20 19:49 03/06/20 19:49 Hospitalist ROS - Medication Medications: Active Medications Generic Name Dose Route Start Last Admin Trade Name Freq PRN Reason Stop Dose Admin Acetaminophen 650 mg 03/06/20 22:17 03/07/20 03:47 Tylenol PO 650 mg Q4H PRN Administration Headache/Fever/Mild Pain (1-3) Enoxaparin Sodium 40 mg 03/07/20 09:00 03/07/20 08:58 Lovenox SC 40 mg 0900 KAYLIN Administration Famotidine 20 mg 03/07/20 09:00 03/07/20 08:58 Pepcid PO 20 mg BID KAYLIN Administration Azithromycin 500 mg/ Sodium 250 mls @ 250 mls/hr 03/06/20 23:00 03/06/20 23: 53 Chloride IVPB 250 mls Q24HR KAYLIN Administration Ceftriaxone Sodium 1 gm/ 100 mls @ 200 mls/hr 03/06/20 23:59 03/06/20 23:52 Sodium Chloride IVPB 100 mls Q24HR KAYLIN Administration - Exam General Appearance: NAD, awake alert Eye: PERRL ENT: normocephalic atraumatic Heart: RRR Respiratory: CTAB, normal chest expansion Hosp A/P - Plan Acute Hypoxic resp failure hx of asthma Multifocal pneumonia - CT chest -- concern for COVID-19 - will get labs- d-dimer hihg, nl LFts -will get pt,inr, crp and ferritin level. -clinically fever, multi-infilterate and advanced age w..underlying pulm dysfn.. -if +ve, need to change to Remdesivir.
[2020-03-07] MEDS ORDERED: Mag-Al Plus 1200 MG/1200 MG/120 MG/30 ML UDCUP PO PRN (14:47)
[2020-03-07] MEDS: Azithromycin 500 MG in Sodium Chloride 0.9% 250 ML 250 ML IVPB SCH (23:09)
[2020-03-07] MEDS: cefTRIAXone\\ROCEPHIN 1 GM in Sodium Chloride 0.9% 100 ML IVPB SCH (23:09)
[2020-03-08 00:04] LABS: Prothrombin Time 13.6 sec (12.0-14.7)
[2020-03-08 00:20] LABS: Anion Gap 13 mmol/L (10-20); BUN (Urea Nitrogen) 13 mg/dL (8.4-25.7); CRP (Inflammatory) 19.63 mg/dL (= or < 0.5); Calc. Creatinine Clearance 66 mL/min (70-130); Calcium 7.9 mg/dL (7.8-10.44); Carbon Dioxide 25 mmol/L (23-31); Chloride 98 mmol/L (98-107); Estimated GFR-MDRD 68; Glucose 101 mg/dL (83-110); Potassium 3.5 mmol/L (3.5-5.1); Sodium 132 mmol/L (136-145)
[2020-03-08] MEDS: Acetaminophen 325 MG TAB PO PRN ×3 (04:04→20:35)
[2020-03-08] MEDS: Enoxaparin Sodium 40 MG/0.4 ML SYRINGE SC SCH ×2 (09:14→20:35)
[2020-03-08 11:32] LABS: PTT 38.5 sec (22.9-36.1); Prothrombin Time 13.5 sec (12.0-14.7)
--- NOTE | 2020-03-08 15:46 | PDOC.HOSPP ---
- Subjective Encounter Date: 03/08/20 Encounter Time: 03:40 Subjective: pt ahs productive cough, yellowish phelgm on the napkins. COVID results pending -- has to come from the clinic, where he was tested and it is closed for the weekend. talk to RN. family members are COVID +ve. - Objective Vital Signs & Weight: Vital Signs (12 hours) Temp Pulse Resp BP Pulse Ox 03/08/20 12:20 98.0 F 81 18 115/69 95 03/08/20 09:20 96.4 F L 81 20 110/63 97 03/08/20 04:07 94 L 03/08/20 04:00 100.3 F H 82 20 121/62 96 Weight Admit Weight 171 lb Weight 171 lb I&O: 03/07/20 03/08/20 03/09/20 06:59 06:59 06:59 Intake Total 800 850 Output Total 150 Balance 650 850 Result Diagrams: 03/06/20 19:49 03/07/20 23:50 Hospitalist ROS - Medication Medications: Active Medications Generic Name Dose Route Start Last Admin Trade Name Freq PRN Reason Stop Dose Admin Acetaminophen 650 mg 03/06/20 22:17 03/08/20 04:04 Tylenol PO 650 mg Q4H PRN Administration Headache/Fever/Mild Pain (1-3) Enoxaparin Sodium 40 mg 03/07/20 09:00 03/08/20 09:14 Lovenox SC 40 mg 0900 KAYLIN Administration Azithromycin 500 mg/ Sodium 250 mls @ 250 mls/hr 03/06/20 23:00 03/07/20 23: 09 Chloride IVPB 250 mls Q24HR KAYLIN Administration Ceftriaxone Sodium 1 gm/ 100 mls @ 200 mls/hr 03/06/20 23:59 03/07/20 23:09 Sodium Chloride IVPB 100 mls Q24HR KAYLIN Administration Pantoprazole Sodium 40 mg 03/08/20 09:00 03/08/20 09:14 Protonix PO 40 mg DAILY KAYLIN Administration - Exam General Appearance: NAD, awake alert Eye: PERRL ENT: normocephalic atraumatic Psychiatric: normal affect, normal behavior, A&O x 3 Hosp A/P - Plan Acute Hypoxic resp failure hx of asthma Multifocal pneumonia - CT chest -- concern for COVID-19 - will get labs- d-dimer hihg, nl LFts -will get pt,inr, crp and ferritin level. -clinically fever, multi-infilterate and advanced age w..underlying pulm dysfn.. -if +ve, need to change to Remdesivir. 31st - Ferritin level high. it appears that his family members have also got COVID - will start him on remdesivir and dc abx -CRP and ferritin levels high - will check QOD -Lovenox to 40mg sc BID -talk to Dr. Garcia, consult placed. -appreciate his help greatly.
[2020-03-08] MEDS ORDERED: Non-Formulary Item 1 EACH in Sodium Chloride 0.9% 250 ML 210 ML IV SCH (16:00)
[2020-03-08] MEDS ORDERED: Albuterol 200 PUFF (6.7GM INHALER) INH PRN (16:36)
[2020-03-08] MEDS: guaiFENesin 200 MG TAB PO SCH ×2 (17:12→23:52)
[2020-03-08] MEDS: ALPRAZolam 0.5 MG TAB PO SCH ×2 (21:49→21:57)
--- NOTE | 2020-03-08 22:12 | CON ---
DATE OF CONSULTATION: 03/08/2020 REASON FOR CONSULTATION: COVID-19 pneumonia. HISTORY OF PRESENT ILLNESS: A 74-year-old with history of hyperlipidemia, asthma, and BPH, who has been ill now since Monday, which is about 3 or 4 days before admission. He was diagnosed with COVID-19 in the outpatient setting, but developed worsening symptoms and was admitted with positive chest x-ray for pulmonary infiltrates. The patient has been exposed in the family to all the family members, who are positive, none of them were admitted to the hospital except for him. 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 On arrival; his BP was 130/67, pulse 93, respirations 21, temperature 101.7, and O2 saturation 94 on room air. He was awake and alert, speaks only Persian. In the respiratory exam, it shows rhonchi lower lobes. The remainder of the examination was not particularly remarkable. Other findings with a fairly unremarkable CBC, mild neutrophilia, and mild lymphocytosis. The D-dimer is 0.81. Creatinine is 1.0. Liver profile normal. Albumin 3.7. CRP was 19. Ferritin was 513. Had a CT of chest, which demonstrated patchy areas of peripheral subpleural ground-glass opacity throughout both lungs and some areas of airspace consolidation right middle lobe and lingula. His COVID in the outpatient setting was reportedly positive and there is a second test that has been carried out here. Currently, he is awake, feeling okay, a little bit of cough, but no sputum production. No headaches. No abdominal pain or diarrhea. No chest pain. No joint symptoms. PAST MEDICAL HISTORY: Includes hyperlipidemia, BPH, and asthma. PAST SURGICAL HISTORY: Cholecystectomy, colonoscopy, and polyp removal. SOCIAL HISTORY: Former smoker. [place] in the area. All members in the family were tested positive for COVID altogether, seven people in the household tested positive. ALLERGIES: PENICILLIN. CURRENT MEDICATIONS: Include; 1. Ventolin. 2. Lovenox. 3. I think he is starting Remdesivir today with the usual protocol. 4. He is on pantoprazole. 5. Azithromycin. 6. Ceftriaxone have been discontinued. PHYSICAL EXAMINATION: VITAL SIGNS: T-max 103.2 and he is now 98, BP 115/69, pulse 81, respirations 18, and O2 saturation 95 to 97 on 3 L nasal cannula. SKIN: Normal. No lymphadenopathy. HEENT: Ocular movements conjugate. Oral cavity with quite a few teeth in place with marked decay and gum disease. NECK: Supple. No jugular vein distention. LUNGS: With fairly clear breath sounds bilaterally. HEART: S1 and S2. Regular rate. No S3 or S4. ABDOMEN: Soft, not distended or tender. No ascites. No bladder distention. EXTREMITIES: No joint inflammatory activity. Moves extremities equally. NEUROLOGIC: He is oriented, follows commands. Speech is normal. LABORATORY DATA: In the latest findings, ferritin 513 and the other findings have been discussed above. ASSESSMENT AND PLAN: Asthma, benign prostatic hyperplasia, hyperlipidemia, and COVID-19 pneumonia with outbreak in the entire family. Duration of illness now about 7 days. He meets criteria for moderate to severe disease and will go ahead and get him started on Remdesivir protocol. Continue following inflammatory markers and D-dimer and the Lovenox b.i.d. protocol as well. Job ID: [id number]
[2020-03-09] MEDS: guaiFENesin 200 MG TAB PO SCH ×3 (05:42→18:03)
[2020-03-09] MEDS: ALPRAZolam 0.5 MG TAB PO SCH ×2 (08:11→21:50)
[2020-03-09] MEDS: Enoxaparin Sodium 40 MG/0.4 ML SYRINGE SC SCH ×2 (08:12→21:51)
[2020-03-09 11:23] LABS: Prothrombin Time 13.2 sec (12.0-14.7)
--- NOTE | 2020-03-09 13:04 | PDOC.HOSPP ---
- Subjective Encounter Date: 03/09/20 Encounter Time: 10:15 Subjective: Visited him briefly, resting comfortably in bed. he looks good. not ill- appearing today. - Objective Vital Signs & Weight: Vital Signs (12 hours) Temp Pulse Resp BP Pulse Ox 03/09/20 12:00 98.1 F 77 16 107/68 94 L 03/09/20 08:00 98.7 F 80 16 109/70 93 L 03/09/20 03:27 99.3 F 83 18 117/71 94 L Weight Admit Weight 171 lb Weight 171 lb I&O: 03/08/20 03/09/20 03/10/20 06:59 06:59 06:59 Intake Total 850 500 240 Balance 850 500 240 Result Diagrams: 03/06/20 19:49 03/07/20 23:50 Hospitalist ROS - Medication Medications: Active Medications Generic Name Dose Route Start Last Admin Trade Name Freq PRN Reason Stop Dose Admin Acetaminophen 650 mg 03/06/20 22:17 03/08/20 20:35 Tylenol PO 650 mg Q4H PRN Administration Headache/Fever/Mild Pain (1-3) Alprazolam 0.5 mg 03/09/20 09:00 03/09/20 08:11 Xanax PO 0.5 mg BID KAYLIN Administration Enoxaparin Sodium 40 mg 03/08/20 21:00 03/09/20 08:12 Lovenox SC 40 mg BID KAYLIN Administration Guaifenesin 400 mg 03/08/20 18:00 03/09/20 12:33 Organ-I Nr PO 03/10/20 18:01 400 mg Q6HR KAYLIN Administration Pantoprazole Sodium 40 mg 03/08/20 09:00 03/09/20 08:12 Protonix PO 40 mg DAILY KAYLIN Administration - Exam General Appearance: NAD, awake alert Eye: PERRL ENT: normocephalic atraumatic Neck: supple Respiratory: CTAB, normal chest expansion Neurological: no focal deficits Psychiatric: A&O x 3 Hosp A/P - Plan Acute Hypoxic resp failure hx of asthma Multifocal pneumonia - CT chest -- concern for COVID-19 - will get labs- d-dimer hihg, nl LFts -will get pt,inr, crp and ferritin level. -clinically fever, multi-infilterate and advanced age w..underlying pulm dysfn.. -if +ve, need to change to Remdesivir. 31st - Ferritin level high. it appears that his family members have also got COVID - will start him on remdesivir and dc abx -CRP and ferritin levels high - will check QOD -Lovenox to 40mg sc BID -talk to Dr. Garcia, consult placed. -appreciate his help greatly. serology still pending. outside covid +ve on remdesivir.
--- NOTE | 2020-03-09 15:21 | PRG ---
DATE OF SERVICE: 03/09/2020 SUBJECTIVE: Mr. Cox is feeling well. He has less cough. No diarrhea. No respiratory symptoms otherwise. OBJECTIVE: VITAL SIGNS: His vital signs are essentially normal. He has still with nasal cannula O2 of 3 L setting at 93, which is a little bit lower than his usual. LUNGS: Symmetric air entry. HEART: S1 and S2 regular rate. ABDOMEN: Soft, not distended. EXTREMITIES: Moves extremities equally. LABORATORY DATA: No new labs, except for ferritin at 513 and CRP 19. ASSESSMENT AND DISCUSSION: Asthma, benign prostatic hyperplasia, hyperlipidemia, and coronavirus disease-19 pneumonia with outbreak in the entire family. Today, he gets the second day of remdesivir, and we will continue monitoring inflammatory markers and D-dimer periodically. Job ID: [id number]
--- NOTE | 2020-03-09 15:26 | PRG ---
DATE OF SERVICE: 03/09/2020 CONSENT NOTE: We have discussed with him the administration of remdesivir for treatment of his COVID-19 pneumonia, the fact that it is an experimental medication that has an emergency use authorization by the [facility], and we discussed potential adverse reactions, potential benefit of the medication, particular reduction in length of illness. In terms of adverse reactions, the main concern would be with liver function test abnormalities. Therefore, the medication will require monitoring of liver function tests periodically. The patient understood and agreed with management recommendations. Job ID: [id number]
[2020-03-09] MEDS: Non-Formulary Item 1 EACH in Sodium Chloride 0.9% 250 ML 230 ML IV SCH (16:21)
[2020-03-09] MEDS: Acetaminophen 325 MG TAB PO PRN (18:08)
[2020-03-10] MEDS: guaiFENesin 200 MG TAB PO SCH ×4 (01:18→17:35)
[2020-03-10 05:31] LABS: #Monocytes 0.2 thou/uL (0.11-0.59); #Neutrophils 2.9 thou/uL (1.40-6.50); %Eosinophils 0.7 % (0.0-10.0); %Lymphocytes 23.9 % (21.0-51.0); %Monocytes 5.7 % (0.0-10.0); %Neutrophils 68.7 % (42.0-75.0); Hemoglobin 14.1 g/dL (14.0-18.0); Mean Corpuscular HGB CONC 33.4 g/dL (32.0-36.0); Mean Corpuscular Hemoglobin 30.3 pg (27.0-31.0); Mean Corpuscular Volume 90.7 fL (78.0-98.0); Mean Platelet Volume 9.2 fL (7.4-10.4); Platelet Count 217 thou/uL (130-400); RBC Distribution Width 12.3 % (11.5-14.5); Red Blood Cell (RBC) Count 4.65 mill/uL (4.70-6.10); White Blood Cell (WBC) Count 4.2 thou/uL (4.8-10.8)
[2020-03-10 05:54] LABS: ALT (SGPT) 26 U/L (8-55); AST (SGOT) 36 U/L (5-34); Albumin 3.3 g/dL (3.4-4.8); Alkaline Phosphatase 58 U/L (40-110); Bilirubin, Direct 0.4 mg/dL (0.1-0.3); Bilirubin, Total 0.6 mg/dL (0.2-1.2)
[2020-03-10 09:01] LABS: INR-International Normal Ratio 1.1; PTT 33.3 sec (22.9-36.1); Prothrombin Time 14.1 sec (12.0-14.7)
[2020-03-10] MEDS: ALPRAZolam 0.5 MG TAB PO SCH ×2 (09:07→20:55)
[2020-03-10] MEDS: Acetaminophen 325 MG TAB PO PRN ×2 (09:07→15:46)
[2020-03-10] MEDS: Enoxaparin Sodium 40 MG/0.4 ML SYRINGE SC SCH ×2 (09:14→20:55)
--- NOTE | 2020-03-10 13:34 | PDOC.HOSPP ---
- Subjective Encounter Date: 03/10/20 Encounter Time: 10:20 Subjective: talk to the pt through [facility], he is ambulating wihtout sob, minimal cough , NO BM today but able toeat all smita. NO CP or SOB with ambulation. went inside his room for brief observation and closer look. - Objective Vital Signs & Weight: Vital Signs (12 hours) Temp Pulse Resp BP BP Pulse Ox 03/10/20 12:00 98.1 F 76 16 113/64 91 L 03/10/20 09:15 78 16 94 L 03/10/20 08:00 98.2 F 87 18 93/60 91 L 03/10/20 04:00 98.6 F 86 19 148/76 H 98 Weight Admit Weight 171 lb Weight 171 lb I&O: 03/09/20 03/10/20 03/11/20 06:59 06:59 06:59 Intake Total 500 1930 Balance 500 1930 Result Diagrams: 03/10/20 05:12 03/07/20 23:50 Hospitalist ROS - Medication Medications: Active Medications Generic Name Dose Route Start Last Admin Trade Name Freq PRN Reason Stop Dose Admin Acetaminophen 650 mg 03/06/20 22:17 03/10/20 09:07 Tylenol PO 650 mg Q4H PRN Administration Headache/Fever/Mild Pain (1-3) Alprazolam 0.5 mg 03/09/20 09:00 03/10/20 09:07 Xanax PO 0.5 mg BID KAYLIN Administration Enoxaparin Sodium 40 mg 03/08/20 21:00 03/10/20 09:14 Lovenox SC Not Given BID KAYLIN Guaifenesin 400 mg 03/08/20 18:00 03/10/20 12:30 Organ-I Nr PO 03/10/20 18:01 400 mg Q6HR KAYLIN Administration Non-Formulary Medication 1 250 mls @ 250 mls/hr 03/09/20 16:00 03/09/20 16:21 each/ Sodium Chloride IV 03/12/20 16:59 250 mls Q24H KAYLIN Administration Pantoprazole Sodium 40 mg 03/08/20 09:00 03/10/20 09:07 Protonix PO 40 mg DAILY KAYLIN Administration - Exam General Appearance: NAD, awake alert Eye: PERRL ENT: normocephalic atraumatic Neck: supple Respiratory: normal chest expansion Hosp A/P - Plan Acute Hypoxic resp failure hx of asthma Multifocal pneumonia - CT chest -- concern for COVID-19 - will get labs- d-dimer hihg, nl LFts -will get pt,inr, crp and ferritin level. -clinically fever, multi-infilterate and advanced age w..underlying pulm dysfn.. -if +ve, need to change to Remdesivir. 31 - Ferritin level high. it appears that his family members have also got COVID - will start him on remdesivir and dc abx -CRP and ferritin levels high - will check QOD -Lovenox to 40mg sc BID -talk to Dr. Garcia, consult placed. -appreciate his help greatly. serology still pending. outside covid +ve on remdesivir. 2nd O2 sats good, will dc NC O2 and monitor -CRP, d-dimer and olga follow up -complete 5 dyas of Remdesivir infusion. -d/w Dr. Garcia.
[2020-03-10] MEDS: Non-Formulary Item 1 EACH in Sodium Chloride 0.9% 250 ML 230 ML IV SCH (15:46)
[2020-03-10] MEDS ORDERED: guaiFENesin 200 MG TAB PO PRN (18:30)
[2020-03-11 05:49] LABS: Anion Gap 11 mmol/L (10-20); BUN (Urea Nitrogen) 12 mg/dL (8.4-25.7); Calc. Creatinine Clearance 84 mL/min (70-130); Carbon Dioxide 26 mmol/L (23-31); Chloride 102 mmol/L (98-107); Estimated GFR-MDRD 88; Glucose 103 mg/dL (83-110); Potassium 3.2 mmol/L (3.5-5.1); Sodium 136 mmol/L (136-145)
[2020-03-11] MEDS: Acetaminophen 325 MG TAB PO PRN ×2 (07:15→11:44)
[2020-03-11] MEDS: Enoxaparin Sodium 40 MG/0.4 ML SYRINGE SC SCH ×2 (07:15→20:53)
[2020-03-11] MEDS: ALPRAZolam 0.5 MG TAB PO SCH ×2 (07:15→20:46)
[2020-03-11] MEDS ORDERED: Potassium Chloride 20 MEQ TAB PO SCH (09:15)
--- NOTE | 2020-03-11 14:51 | PDOC.HOSPP ---
- Subjective Encounter Date: 03/11/20 Encounter Time: 10:20 Subjective: sitting in the chair, it is noted that his O2 drops in 88-92% without O2. improved to 94 w.. 2Li O2. pt has no sxs. - Objective Vital Signs & Weight: Vital Signs (12 hours) Temp Pulse Resp BP Pulse Ox 03/11/20 11:55 71 16 88 L 03/11/20 08:00 92 L 03/11/20 07:25 98.2 F 86 16 122/72 92 L 03/11/20 04:00 99.6 F 92 18 132/74 91 L Weight Admit Weight 171 lb Weight 171 lb I&O: 03/10/20 03/11/20 03/12/20 06:59 06:59 06:59 Intake Total 1930 1000 Balance 1930 1000 Result Diagrams: 03/10/20 05:12 03/11/20 05:13 Hospitalist ROS - Medication Medications: Active Medications Generic Name Dose Route Start Last Admin Trade Name Freq PRN Reason Stop Dose Admin Acetaminophen 650 mg 03/06/20 22:17 03/11/20 11:44 Tylenol PO 650 mg Q4H PRN Administration Headache/Fever/Mild Pain (1-3) Alprazolam 0.5 mg 03/09/20 09:00 03/11/20 07:15 Xanax PO 0.5 mg BID KAYLIN Administration Enoxaparin Sodium 40 mg 03/08/20 21:00 03/11/20 07:15 Lovenox SC 40 mg BID KAYLIN Administration Non-Formulary Medication 1 250 mls @ 250 mls/hr 03/09/20 16:00 03/10/20 15:46 each/ Sodium Chloride IV 03/12/20 16:59 250 mls Q24H KAYLIN Administration Pantoprazole Sodium 40 mg 03/08/20 09:00 03/11/20 07:15 Protonix PO 40 mg DAILY KAYLIN Administration - Exam General Appearance: NAD, awake alert Eye: PERRL ENT: normocephalic atraumatic Neck: supple Psychiatric: normal affect, normal behavior, A&O x 3 Hosp A/P - Plan Acute Hypoxic resp failure hx of asthma Multifocal pneumonia - CT chest -- concern for COVID-19 - will get labs- d-dimer hihg, nl LFts -will get pt,inr, crp and ferritin level. -clinically fever, multi-infilterate and advanced age w..underlying pulm dysfn.. -if +ve, need to change to Remdesivir. - Ferritin level high. it appears that his family members have also got COVID - will start him on remdesivir and dc abx -CRP and ferritin levels high - will check QOD -Lovenox to 40mg sc BID -talk to Dr. Garcia, consult placed. -appreciate his help greatly. serology still pending. outside covid +ve on remdesivir. 2nd O2 sats good, will dc NC O2 and monitor -CRP, d-dimer and olga follow up -complete 5 dyas of Remdesivir infusion. -d/w Dr. Garcia. 3rd -Hypoxia - still needs O2. -last day for remdesivir--monday -may need to extend --d-dimer actually went up ferritin slightly less [426] and so does crp [11.74] from initial values -may need to extend the antiviral duration? - see how he does in the next 2 days.
[2020-03-11] MEDS: Non-Formulary Item 1 EACH in Sodium Chloride 0.9% 250 ML 230 ML IV SCH (15:24)
--- NOTE | 2020-03-11 17:07 | PRG ---
DATE OF SERVICE: 03/11/2020 SUBJECTIVE: Mr. Hilario is feeling well. He is not wearing his O2 per nasal cannula. He removed it himself. The only thing he complains about is he has not been able to sleep at night. He denies headaches, no cough anymore. No abdominal pain or diarrhea. He has been afebrile since 4 p.m. on 03/09. OBJECTIVE: VITAL SIGNS: Other vital signs are normal. His O2 sats ranging from 88, but this is without O2 supplementation. When I placed the oxygen at 1 L, he went up to 98%. LUNGS: Clear. HEART: S1, S2, regular rate. ABDOMEN: Soft, not distended or tender. No ascites. No bladder distention. MUSCULOSKELETAL: No joint inflammatory activity. NEUROLOGIC: Nonfocal. LABORATORY DATA: White cell count is 4.2, hemoglobin 14, platelets 217. D- dimer is 2.92 and creatinine 0.85. Ferritin is down to 426 from 513. His CRP is down to 11.74. ASSESSMENT AND DISCUSSION: Asthma, benign prostatic hyperplasia, hyperlipidemia , COVID-19 pneumonia with severe manifestation. I told the patient that he needs to keep his O2 nasal cannula on. Otherwise, we will never know how his oxygenation is doing and he is on remdesivir. This is the 4th day of remdesivir, tomorrow is the last day. Discharge planning whenever his markers keep going down and his O2 saturations are good off oxygen. Job ID: [id number] MTDD
[2020-03-12] MEDS: Enoxaparin Sodium 40 MG/0.4 ML SYRINGE SC SCH (09:41)
[2020-03-12] MEDS: ALPRAZolam 0.5 MG TAB PO SCH (09:41)
--- NOTE | 2020-03-12 12:23 | DIS ---
DATE OF ADMISSION: 03/06/2020 DATE OF DISCHARGE: 03/12/2020 DISCHARGE DIAGNOSES: 1. Acute hypoxic respiratory failure. 2. History of asthma. 3. Multifocal pneumonia. 4. Coronavirus disease positive. DISCHARGE MEDICATIONS: 1. Flomax 0.4 mg daily. 2. Proventil 2 puffs inhalation q.6 p.r.n. 3. Xanax 0.5 mg twice a day. PHYSICAL EXAMINATION: VITAL SIGNS: On the day of discharge, temperature is 98.3, pulse is 95. His oxygen saturation is 92% in the room air. Blood pressure 121/66. I did not perform complete physical exam as this patient is a COVID positive. He is having his meals. He has no acute issues at this time. He denies any cough or shortness of breath. His oxygen saturations, even though it is on the low 90s, he is still ambulating without any respiratory distress and no short of breath at rest and denies any chest pain. He is agreeable for discharge plan today. HOSPITAL COURSE: A 74-year-old male admitted with multifocal pneumonia, underlying history of asthma. His family members, most of them have COVID positive. His screening came back positive. His D-dimers are elevated. Elevated CRP and ferritin level, but normal liver function test. Given his risk factors of advanced age and high lab markers, he is in moderate severity of the COVID. He received remdesivir as well as Lovenox for 5 days. His saturations were not improved to a very high level; however, it is in the upper 90s. Clinically, stable to be discharged home today. DISCHARGE INSTRUCTIONS: Activity as tolerated. Regular diet. Please follow social distancing with your family members as well as being in public, at least for the next 10 days. Follow up with primary care physician in 1 week. TIME SPENT: Discharge time took over 30 minutes. Job ID: [id number] MTDD
[2020-03-12] MEDS: Non-Formulary Item 1 EACH in Sodium Chloride 0.9% 250 ML 230 ML IV SCH (15:58)
[2020-03-12 16:17] VITALS: BP 101/62; TEMP 98.6
--- NOTE | 2020-03-14 06:46 | PQF ---
SUNITHA ESPINO SOUNDARI [id number] [id number] CLINICAL DOCUMENTATION CLARIFICATION FORM: POST DISCHARGE Addendum to original discharge summary date: ____ Late entry note date: __ DATE: 03/14/2020 ATTN: Loni Segura Please exercise your independent, professional judgment in responding to the clarification form. Clinical indicators are provided on the bottom of this form for your review Please check appropriate box(es): [ ] Sepsis [ ] SIRS due to non-infectious process (please specify etiology) [ ] with organ dysfunction [ ] without organ dysfunction [ ] Severe sepsis with acute organ dysfunction of: (Examples: respiratory failure, encephalopathy, acute kidney failure, other) [ ] Septic Shock [ x ] Localized infection without sepsis [ ] Other diagnosis [ ] Unable to determine In addition, please specify: Present on Admission (POA): [ ] Yes [ ] No [ ] Unable to determine For continuity of documentation, please document condition throughout progress notes and discharge summary. Thank You. CLINICAL INDICATORS - SIGNS / SYMPTOMS / LABS DS 03/12 "acute hypoxic respiratory failure" DS 03/12 "multifocal pneumonia" DS 03/12 "patient positive for covid19" Vital Signs Temp: 03/0796=922.2 03/0817=853.8 03/0917=787.2 Vital Signs Pulse: 03/1268=268 Vital Signs Respi: 03/07=30,24 Vital Signs BP: 03/07=98/57 Labs WBC: 03/06=5.7 03/10=4.2 Labs Lactate: 03/06=1.1 Collected 03/06 "Blood culture:no growth" RISK FACTORS 74 years old male-ED Notes 03/06 asthma-ED Notes 03/06 Former smoker-ED Notes 03/06 PNA-DS 03/12 Covid 19-DS 03/12 TREATMENTS: Chest Xray-Collected 03/06 Oxygen via NC-DS 03/12 azithromycin 500mg IV-DEC 11 Rocephin 1gm IV-DEC 11 Blood culture-Collected 03/06 (This form is maintained as a part of the permanent medical record) 2014 [employer]. All Rights Reserved [email or web address]
== END 2020-03-12 18:57 | disposition home or self-care (01) | DRG 177 ==
LOC: ERS 18:53 → 2SW 22:15 → T4-B 03-08 23:20
PROVIDERS: ADMIT Internal Medicine; ATTEND Internal Medicine
DX: U07.1 COVID-19 (principal); J96.01 Acute respiratory failure with hypoxia; J12.89 Other viral pneumonia; E78.5 Hyperlipidemia, unspecified; J45.909 Unspecified asthma, uncomplicated; F41.9 Anxiety disorder, unspecified; N40.0 Benign prostatic hyperplasia without lower urinary tract symptoms; Z90.49 Acquired absence of other specified parts of digestive tract; Z87.891 Personal history of nicotine dependence; Z88.0 Allergy status to penicillin; Z79.51 Long term (current) use of inhaled steroids; Z79.899 Other long term (current) drug therapy
CPT/HCPCS: 36415; 71045; 71275; 80048; 80053; 80076; 82550; 82728; 83605; 84484; 85025; 85379; 85610; 85730; 86140; 87040; 93005; 94760; J0456; J0696; J1650; J3490; J7050; Q9967

== ENCOUNTER 2020-08-21 14:59 | Outpatient (CLI) | payer MEDICARE, MEDICAID ==
[2020-08-21] MEDS ORDERED: Iopamidol-370 76% 500 ML 1 ML ONE (15:22)
--- NOTE | 2020-08-21 15:42 | CT ---
CT ABDOMEN AND PELVIS WITH IV CONTRAST 08/21/2020 CLINICAL INFORMATION: Nausea, vomiting, abdominal pain. History of colon cancer. COMPARISON: 07/28/2019 and CTA chest on 03/06/2020 Technique: Multiple contiguous axial CT images are obtained through the abdomen and pelvis with IV contrast. Cor onal reformatted images are provided. FINDINGS: Lower Chest: Groundglass densities seen at each lung base on prior exam are not seen on this study. S mall parenchymal densities in the lingula and right middle lobe are likely attributable to atelectasis. Vessels: Vascular calcifications in the abdominal aorta and iliac arteries. Abdomen: Portal vein:Patent Gallbladder: Surgically absent. Liver: Stable small cyst in caudate lobe. Spleen: within normal limits. Pancreas: within normal limits. Adrenals: within normal limits. Kidneys: Stable subcentimeter too small to characterize hypodense lesions in each kidney with stable 11 mm hypodense lesion midportion left kidney which cannot be characterized as a cyst on this exam, but given stability compared to prior study as well as a study in 2018 suggests possibility of a cyst and possibly Bosniak type II renal cystic Bowel: Evidence of colonic diverticulosis. Postoperative changes sigmoid colon are noted with an end to side anastomosis present. Loops of small bowel are normal in caliber. Appendix: The appendix is visualized and normal in caliber. Peritoneum: No ascites or free air; no fluid collection. Mesentery and Retroperitoneum: No enlarged mesenteric or retroperitoneal lymph nodes. A surgical clip is seen within the central pelvis just to the right of midline. Abdominal Wall: within normal limits. Pelvis: Reproductive Organs: Prostate gland remains enlarged measuring 17 cm in transverse dimensions prostat e gland is slightly heterogeneous in appearance. Bladder: Incompletely distended. There is mild mass effect at the base urinary bladder due to enlarge d prostate gland. Bones: Stable slight wedge-shaped deformity involving the T12 vertebral body which could be related t o physiological wedging. Mild degenerative changes are seen in the spine. IMPRESSION: 1. No acute findings in the abdomen or pelvis. 2. Left hepatic lobe cyst. 3. Cholecystectomy. 4. Postoperative changes sigmoid colon. 5. Subcentimeter too small to characterize hypodense lesions with stable cystic lesion midportion lef t kidney which may represent a Bosniak type II cystic renal lesion. 6. No CT findings to suggest metastatic disease. 7. Enlargement of the prostate gland.
== END 2020-08-21 15:00 | disposition home or self-care (01) ==
LOC: BICCT 14:59
PROVIDERS: ATTEND Internal Medicine
DX: R10.2 Pelvic and perineal pain (principal); R11.2 Nausea with vomiting, unspecified; K76.89 Other specified diseases of liver; N40.0 Benign prostatic hyperplasia without lower urinary tract symptoms; N28.89 Other specified disorders of kidney and ureter; Z90.49 Acquired absence of other specified parts of digestive tract; Z98.890 Other specified postprocedural states
CPT/HCPCS: 74177; 82565

== ENCOUNTER 2023-12-22 11:00 | Emergency (ER) | payer MEDICARE, MEDICAID ==
[2023-12-22] MEDS ORDERED: Famotidine/PF 20 mg/2ml Vial ONE (12:28)
[2023-12-22 13:37] LABS: #Eosinphils 0.1 thou/uL (0.0-0.7); #Monocytes 0.5 thou/uL (0.11-0.59); #Neutrophils 2.7 thou/uL (1.40-6.50); %Basophils 0.5 % (0.0-1.0); %Eosinophils 2.1 % (0.0-10.0); %Lymphocytes 45.4 % (21.0-51.0); %Monocytes 7.5 % (0.0-10.0); %Neutrophils 44.3 % (42.0-75.0); Hematocrit 42.6 % (42.0-52.0); Hemoglobin 14.5 g/dL (14.0-18.0); Mean Corpuscular Hemoglobin 29.9 pg (27.0-31.0); Mean Corpuscular Volume 87.8 fl (78.0-98.0); Mean Platelet Volume 11.3 fL (7.4-10.4); Platelet Count 193 10x3/uL (130-400); RBC Distribution Width 13.7 % (11.5-14.5); Red Blood Cell (RBC) Count 4.85 mill/uL (4.70-6.10); White Blood Cell (WBC) Count 6.2 10x3/uL (4.8-10.8)
[2023-12-22 13:55] LABS: ALT (SGPT) 24 U/L (8-55); AST (SGOT) 25 U/L (5-34); Albumin 4.1 g/dL (3.4-4.8); Alkaline Phosphatase 70 U/L (40-110); Anion Gap 12 mmol/L (10-20); BUN (Urea Nitrogen) 16 mg/dL (8.4-25.7); Bilirubin, Total 1.3 mg/dL (0.2-1.2); Calc. Creatinine Clearance 0 mL/min (70-130); Calcium 8.9 mg/dL (7.8-10.44); Carbon Dioxide 26 mmol/L (23-31); Chloride 106 mmol/L (98-107); Estimated GFR 72; Globulin 3.4 g/dL (2.4-3.5); Glucose 95 mg/dL (83-110); Lipase 23 U/L (8-78); Protein, Total 7.5 g/dL (5.8-8.1); Sodium 140 mmol/L (136-145)
[2023-12-22 13:59] LABS: Troponin I Less than 0.010 ng/mL (< 0.028)
== END 2023-12-22 15:30 | disposition home or self-care (01) ==
LOC: ERS 11:00
DX: R10.10 Upper abdominal pain, unspecified (principal); K21.9 Gastro-esophageal reflux disease without esophagitis
CPT/HCPCS: 36415; 71045; 74177; 80053; 83690; 84484; 85025; 93005; 96374; S0028